=== PATIENT | female | born 1995 | race Caucasian/White ===

== ENCOUNTER 2022-10-11 05:53 | Inpatient (IN) | payer OTHER, SELFPAY ==
[2022-10-11] VITALS (86 sets, daily range): BP systolic 83–131; BP diastolic 50–99; PULSE 49–150; RESP 16; TEMP 36.3–36.9; O2SAT 79–100; BMI 33.8
[2022-10-11] MEDS: OXYTOCIN 30 UNITS/NS 500 ML 30 UNITS/500 ML BAG IV CONT (06:51)
[2022-10-11] MEDS: LACTATED RINGERS 1,000 ML 125 ML IV CONT ×3 (06:52→11:38)
[2022-10-11 07:19] LABS: Basophils Percent Auto 0.3 % (0.2-1.2); Eosinophils Percent Auto 0.3 % (0-4.4); Hematocrit 34.8 % (37.0-47.0); Hemoglobin 11.6 g/dL (12.0-15.0); Immature Granulocyte Absolute 0.07 K/mm3 (0.00-0.031); Immature Granulocyte Percent A 0.9 % (0-0.5); Lymphocytes Absolute Auto 1.97 K/mm3 (0.9-3.2); Lymphocytes Percent Auto 25.3 % (18.3-44.2); Mean Corpuscular HGB Conc 33.3 g/dl (32-36); Mean Corpuscular Hemoglobin 30.4 pg (26-34); Mean Corpuscular Volume 91.1 fl (80-100); Monocytes Absolute Auto 0.5 K/mm3 (0.1-0.6); Monocytes Percent Auto 6.2 % (2.6-8.5); Neutrophils Absolute Auto 5.2 K/mm3 (1.3-6.7); Platelet Count Result 205 k/mm3 (150-375); Red Blood Count 3.82 M/mm3 (4.2-5.4); White Blood Count 7.8 K/mm3 (4.5-10.0)
--- NOTE | 2022-10-11 08:17 | P.PNAN_ITS ---
Anes - Eval Pre Procedure Procedure: Labor Pain Management Date/Time: 10/11/22 08:17 Surgeon: Vee Preop Diagnosis: Pain during labor Pre Op Diagnosis: IOL Patient Data Age: 27 Gender: F Height: 1.57 m Weight: 84 kg Last Vital Signs Temp 97.4 F L 10/11/22 07:00 Pulse 73 10/11/22 08:01 BP 124/85 10/11/22 08:01 O2 Del Method Room Air 10/11/22 06:26 Allergies Allergy/AdvReac Type Severity Reaction Status Date / Time No Known Allergies Allergy Unverified 12/17/16 15:31 Home Medications Medication Instructions Recorded Confirmed Type prenat.vits,alisha,zts-[id number]-[id number] 1 tablet PO DAILY 09/24/22 10/11/22 History Laboratory Tests 10/11/22 10/11/22 06:47 06:47 WBC 7.8 K/mm3 K/mm3 (4.5-10.0) RBC 3.82 M/mm3 L M/mm3 (4.2-5.4) Hgb 11.6 g/dL L g/dL (12.0-15.0) Hct 34.8 % L % (37.0-47.0) MCV 91.1 fl fl (80-100) MCH 30.4 pg pg (26-34) MCHC 33.3 g/dl g/dl (32-36) RDW 14.0 % % (11.5-14.5) Plt Count 205 k/mm3 k/mm3 (150-375) MPV 11.0 fl H fl (7.4-10.4) Immature Gran % (Auto) 0.9 % H % (0-0.5) Neut % (Auto) 67.0 % % (45.5-73.1) Lymph % (Auto) 25.3 % % (18.3-44.2) [place] % (Auto) 6.2 % % (2.6-8.5) Eos % (Auto) 0.3 % % (0-4.4) Baso % (Auto) 0.3 % % (0.2-1.2) Lymph # (Auto) 1.97 K/mm3 K/mm3 (0.9-3.2) [place] # (Auto) 0.5 K/mm3 K/mm3 (0.1-0.6) Eos # (Auto) 0.0 K/mm3 K/mm3 (0-0.3) Baso # (Auto) 0.0 K/mm3 K/mm3 (0.0-0.1) Abs Immat Gran (auto) 0.07 K/mm3 H K/mm3 (0.00-0.031) Absolute Neuts (auto) 5.2 K/mm3 K/mm3 (1.3-6.7) Absolute Nucleated RBC 0.0 K/mm3 K/mm3 (0.0-0.012) Nucleated RBC % 0.0 % % (0.0-0.2) RPR Pending Patient hx anesthesia problems: none Family hx anesthesia problems: none Results Review: All pre-operative results and documents have been reviewed as part of the pre- operative evaluation. [facility] Family History Family History Other Patient denies significant medical history Social History Social History Smoking status: Never smoker Second hand tobacco smoke exposure: No Substance use: never Lack of Transportation: No Lack of Food: Never True Current Housing: I Have Housing Concerned About Future Housing: No Difficulty Paying Gas/Electric Bills: No Difficulty Paying for Meds: No Currently Unemployed: No Education: Associate Degree Difficulty w/ Childcare or Family Care: No Spiritual care concerns: No Exam Day of Procedure 10/11/22 08:17
--- NOTE | 2022-10-11 08:29 | P.HPUP_ITS ---
History and Physical Update Update Date/Time: 10/11/22 08:29 27-year-old multiparous female with a term gestation presents for elective induction. Cervix is 4 cm, 70%, -1 station. Artificial rupture membranes was performed. Clear fluid. Expected management. History and Physical has been reviewed, including an updated exam of the patient. There are NO changes in the patient's condition. Risks, benefits, and alternatives have been discussed and questions answered. Fernando ashford agrees to proceed with procedure.
--- NOTE | 2022-10-11 12:09 | PM.OBPRVD ---
OB - Delivery Note Procedure Procedure: Induction method: AROM and Per Pitocin Protocol Delivery monitor: External FHT and External Uterine Route of delivery: Episiotomy description: None Laceration Description: None Anesthesia type: Epidural Disposition: Floor Baby Date of : 10/11/22 Time of : 11:51 Weeks of gestation at delivery: 39 Infant gender: Female Weight (pounds): 8 Weight (ounces): 7 score one minute: 8 score five minutes: 9
[2022-10-11] MEDS: OXYTOCIN 30 UNITS/NS 500 ML 30 UNITS/500 ML BAG 125 UNITS IV CONT (12:29)
[2022-10-11] MEDS: IBUPROFEN 600 MG TABLET PO ×2 (15:44→22:43)
--- NOTE | 2022-10-11 16:57 | OBPPTRN ---
1505-Patient transferred to post room #290 via wheelchair. Support person present. Oriented to unit, room, information board, rooming in, admission packet and security measures. Patient verbalizes understanding.
[2022-10-12] MEDS: ACETAMINOPHEN 325 MG TABLET 650 MG PO ×2 (03:38→11:51)
[2022-10-12 04:20] LABS: Hematocrit 34.6 % (37.0-47.0); Hemoglobin 11.5 g/dL (12.0-15.0)
--- NOTE | 2022-10-12 07:15 | WPDANLDPN2 ---
Anes-Prog Note L&D Date/Time: 10/12/22 07:15 Comfortable throughout: labor and delivery Neuraxial method: epidural Epidural/Spinal procedure site: clean & non-tender Neuro status: Neuro function grossly intact. Cardiovascular status: normal Respiratory status: normal Airway patency: baseline Mental status: baseline Post-Op hydration status: normal Vital Signs: Last Vital Signs Temp 36.6 C 10/11/22 23:17 Pulse 59 L 10/11/22 23:17 Resp 16 10/11/22 23:17 BP 116/66 10/11/22 23:17 Pulse Ox 100 10/11/22 23:17 O2 Del Method Room Air 10/11/22 15:30 Pain score (VAS): 08/03 I/O: Intake & Output 10/11/22 10/11/22 10/12/22 15:59 23:59 07:59 Intake Total 1999 1800 Output Total 355 Balance 1645 1800 Post-procedural complaints: none Patient feedback: Patient satisfied with anesthetic care.
--- NOTE | 2022-10-12 07:26 | PM.OBPNVD ---
OB - PN: Subj Subjective Date/time seen: 10/12/22 07:26 Patient comments: no complaints, pain well controlled, incisional pain, tolerating diet and flatus present OB - PN: Obj Data Labs 10/12/22 04:08 Labs: Laboratory Results - last 24 hr 10/11/22 10/12/22 06:47 04:08 Hgb 11.5 L Hct 34.6 L Blood Type A Positive Antibody Screen Negative OB - PN A/P Plan day: 1 Plan: routine care Comments: No problems, routine care Time Spent With Patient Time: Total time spent is greater than 50% in coordination of care (as documented) at patient's floor/unit and/or counseling patient: Exam Const: General: comfortable, no acute distress and alert Resp: Effort & Inspection: normal respiratory effort Auscultation: no crackles, no rales and no rhonchi Cardio: Rate: regular rate Heart sounds: no click, no murmurs and no rubs GI: Inspection: non-distended GI Palp: No Tenderness to palpation present (GI) Auscultation: normal bowel sounds Other: Incision - CDI Extrem: General: normal to inspection, no pedal edema and no calf tenderness
--- NOTE | 2022-10-12 07:26 | PM.OBDSVD ---
DS: Admitting Diagnosis Discharge Date 10/12/22 Admitting Diagnosis term OB - DS: Summary OB Procedures : None OB Procedures Intrapartum: Spontaneous Vag Delivery OB Procedures: : None Time Spent with Patient Time attestation: Total time spent providing and/or coordinating discharge services: DS: Data Data Completed and Pending Pending studies at discharge: Pending at discharge 10/11/22 12:36 Surgical [PTH] Routine Labs on day of discharge: Labs from last 24 hours 10/12/22 10/11/22 04:08 06:47 Hgb 11.5 L Hct 34.6 L Blood Type A Positive Antibody Screen Negative Discharge Plan Discharge Discharging Clinician: Dra Baxter Patient Disposition: Home, Self-Care Activity: pelvic rest Diet: regular Patient Instructions: Antibiotic Form Stand Alone Forms: General Discharge Information Follow-up/Referrals: Dar Baxter MD [Physician] - Discharge Medications: Continued #2 Tablet 1 tablet PO DAILY Date of admission: 10/11/22 05:53 Primary Care Provider: LauraMar Admitting Provider: Dar Baxter Attending physician on admission: Dar Baxter Condition: Stable
[2022-10-12] MEDS: MULTIVIT/MIN/PREN/FOL AC/IRON TABLET 1 TAB PO (07:33)
[2022-10-12] MEDS: IBUPROFEN 600 MG TABLET PO (07:33)
[2022-10-12 07:55] VITALS: BP 102/72; PULSE 58; RESP 16; TEMP 36.5; O2SAT 99
--- NOTE | 2022-10-12 08:07 | PC.NURSE ---
Patient instructed on viewing the discharge video Mother & Baby Care, The First Two Weeks . Patient was given the opportunity and encouraged to ask questions. Patient verbalized understanding of information shared and has been given the mother/baby guide for home reference.
[2022-10-12 10:53] LABS: Rapid Plasma Reagin Non-Reactive (NonReactive)
[2022-10-13 14:10] VITALS: BP 116/73; PULSE 71; RESP 16; TEMP 36.8; O2SAT 99
--- NOTE | 2022-11-11 08:45 | PM.OBDSVD ---
DS: Admitting Diagnosis Discharge Date 10/12/22 Admitting Diagnosis term OB - DS: Summary OB Procedures : None OB Procedures Intrapartum: Spontaneous Vag Delivery OB Procedures: : None Time Spent with Patient Time attestation: Total time spent providing and/or coordinating discharge services: DS: Data Data Completed and Pending Completed studies during hospitalization: Pending at discharge 10/11/22 12:36 Surgical [PTH] Routine Discharge Plan Discharge Consulting providers: Mariola Jose ; Lashonda Mora Discharging Clinician: Dar Baxter Patient Disposition: Home, Self-Care Activity: pelvic rest Diet: regular Discharge Instructions: Education: Mom and Baby Guide Given to: Mother Follow-Up: Call your delivering provider's office for an appointment to be seen in: Call for appointment Mom and baby should come to the [facility] for the follow-up appointment. Appointment Date/Time: October 13, 2022 at 1:30 pm What to expect at your follow-up visit: Physical Assessment Call [phone] if you are unable to keep your appointment time. BREAST CARE: * Wear a snug supportive bra. * For engorgement discomfort: Breast Feeding: * Apply warm moist washcloths * Express milk as needed to relieve engorgement * Wear loose clothing * For sore nipples: * Identify correct latch-on * Apply warm moist washcloths before and after nursing * Air dry nipples after nursing * May apply Lansinoh cream to nipples EPISIOTOMY/PERINEAL CARE: * Until bleeding stops, use your ymles bottle after urinating * Change your pad frequently throughout the day * No tub baths until seen by your physician - You may shower ACTIVITY: * Rest as much as possible. * Do not exercise or lift anything heavier than your baby (such as laundry or other children.) * Avoid stairs or driving as much as possible. * Do not put anything into the vagina. No douching, tampons, or sexual activity until seen by physician. NOTIFY PHYSICIAN IF YOU HAVE ANY QUESTIONS OR IF ANY OF THE FOLLOWING SYMPTOMS OCCUR: * If your perineum becomes red, swollen, or more painful than what you have experienced in the hospital. * If your vaginal bleeding becomes foul smelling. * If your vaginal bleeding becomes more heavy than a period or if your bleeding changes from pink to bright red. However, you may pass an occasional walnut-sized clot once or twice for the first week . * If you experience a sharp, shooting pain in you calves. * If you discover a hard, reddened area on your breast or if you experience flu-like symptoms. DIET: * Eat regular, well-balanced meals. * Drink plenty of fluids daily. If , drink to thirst. Stand Alone Forms: General Discharge Information Follow-up/Referrals: Dar Baxter MD [Physician] - Discharge Medications: Continued prenat.vits,alisha,[id number] Tablet 1 tablet PO DAILY Date of admission: 10/11/22 05:53 Primary Care Provider: LauraMar Admitting Provider: Dar Baxter Attending physician on admission: Dar Baxter Condition: Stable
--- NOTE | 2022-11-11 08:46 | PM.OBTRLD ---
OB - Triage/Final Diagnosis Visit Information Comments/Additional reasons for admission: I have assessed the risk for this patient, Marybel Ramirez, and determined that she would benefit from observation care. Evaluation Laboratory results: Laboratory Tests 10/11/22 10/11/22 10/11/22 06:47 06:47 06:47 WBC 7.8 RBC 3.82 L Hgb 11.6 L Hct 34.8 L MCV 91.1 MCH 30.4 MCHC 33.3 RDW 14.0 Plt Count 205 MPV 11.0 H Immature Gran % (Auto) 0.9 H Neut % (Auto) 67.0 Lymph % (Auto) 25.3 [place] % (Auto) 6.2 Eos % (Auto) 0.3 Baso % (Auto) 0.3 Lymph # (Auto) 1.97 [place] # (Auto) 0.5 Eos # (Auto) 0.0 Baso # (Auto) 0.0 Abs Immat Gran (auto) 0.07 H Absolute Neuts (auto) 5.2 Absolute Nucleated RBC 0.0 Nucleated RBC % 0.0 RPR Non-reactive Blood Type A Positive Antibody Screen Negative 10/12/22 04:08 WBC RBC Hgb 11.5 L Hct 34.6 L MCV MCH MCHC RDW Plt Count MPV Immature Gran % (Auto) Neut % (Auto) Lymph % (Auto) [place] % (Auto) Eos % (Auto) Baso % (Auto) Lymph # (Auto) [place] # (Auto) Eos # (Auto) Baso # (Auto) Abs Immat Gran (auto) Absolute Neuts (auto) Absolute Nucleated RBC Nucleated RBC % RPR Blood Type Antibody Screen Final Diagnosis (1) Pain during labor: Code(s): O99.892 - Other specified diseases and conditions complicating childbirth; R52 - Pain, unspecified Status: Acute (2) : Code(s): Z34.90 - Encounter for supervision of normal , unspecified, unspecified trimester Status: Acute
== END 2022-10-12 14:55 | disposition home or self-care (01) | DRG 807 ==
LOC: ANHLDR 05:56 → ANHOB2 15:15
PROVIDERS: Admitting Provider Obstetrics & Gynecology; PCP Nurse Practitioner Family; Visit Provider Obstetrics & Gynecology
DX: O43.893 Other placental disorders, third trimester (principal); Z37.0 Single live birth; Z3A.39 39 weeks gestation of pregnancy
CPT/HCPCS: 36415; 85014; 85018; 85025; 86592; 86850; 86900; 86901; 88307; A9270; J2590; J2795; J7120

== ENCOUNTER 2025-06-05 16:37 | Outpatient (CLI) | payer OTHER, SELFPAY ==
--- NOTE | ~2025-06-05 | XR_ITS ---
EXAMINATION: XR chest 2V, 06/05/2025 16:53 [employer] HISTORY: cough x 2 weeks COMPARISON: No comparisons available. Technique: 2 views obtained. Findings: The lungs are clear, no effusion. No pneumothorax. Heart is normal size. Mediastinal and hilar contours are within normal limits. Bony thorax no acute abnormality. Impression: No acute cardiopulmonary abnormality. Reviewed, dictated and finalized at location [facility] Impression: No acute cardiopulmonary abnormality.
--- OUTSIDE RECORDS SUMMARY | 2025-06-05 16:45 | XMS_ITS | Data Portability ---
Author Organization [facility] [place] [place] Address [address] [place] [address] Assessment No assessment recorded. Plan of Treatment Reminders Order Date Submit Date Provider Last Modified By Organization Details Last Modified Time Details Appointments None recorded. Lab test, urine 2023 024 [place], [address], [place], [address], 4 11:51:20 test, urine 2022 023 [email or web address] [place], [address], [address], [place], [address], 3 14:16:57 Referral None recorded. Procedures None recorded. Surgeries None recorded. Imaging US, pelvis 2022 023 [email or web address] [place], [address], [address], [place], [address], 3 20:42:20 US, transvagina l 2022 023 [email or web address] [place], [address], [place], [address], 3 20:42:20 Medication Orders Nexplanon 68 mg subdermal implant 2023 024 [email or web address] Not available 4 12:14:24 Depo-C2 Tactical Analysis Technician a 150 mg/mL intramuscul ar syringe 2023 024 Not available 4 11:47:54 Depo-C2 Tactical Analysis Technician a 150 mg/mL intramuscul ar syringe 2022 023 Not available 4 11:47:54 Depo-C2 Tactical Analysis Technician a 150 mg/mL intramuscul ar syringe 2022 023 Not available 4 11:47:54 Patient TargetsNo targets recorded. Patient InstructionsNo instructions recorded. Reason for Referral None Reported. 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 FINAL DIAGN OSIS: Negat geoffrey for Intra epith elial Lesio n or Sunny dickey (NIL) . Elect kelly austin jesus d by Lucio Stewart, CT on 023 at 7:59 PM ----- ----- ----- ----- ----- ----- ----- ----- ----- ----- ----- ----- ----- ----- ----- ----- ----- ---- COMME NT: Slide scree guero tka lly due to rejec tion by the Thinp rep Imagi ng Syste m. CLINI ALISHA INFOR MATIO N: Menst rual Statu s: LMP (if appli cable ): Clini alisha Histo ry/Pr eviou s Pap: Type of Neopl marshall (if appli cable ): Signi fican t Clini alisha Findi ngs: Other Histo ry: Hormo ilene (if appli cable ): PAP EDUCA CALLY L NOTE: The Pap Test is a scree dara test with an inher ent false negat geoffrey rate. Liqui d-bas ed sampl ing may decre ase, but will not elimi lenore, false negat geoffrey resul ts. A negat geoffrey resul t does not precl ude the prese nce and/o r devel opmen t of disea se, since the prese nce of abnor mal cells in the sampl e depen ds on the locat ion of the lesio n and sampl ing techn ique. Aneudy nued regul ar scree dara is the best metho d of cance r preve ntion . If repor estefani cytol ogic findi ng do not corre late with physi alisha and/o r histo rical findi ngs, furth er inves tigat ion is recom justus d, as clini georges warrron nted. Not Available [facility] (Lab) [address], [place], [address], 01/28/2023 21:09:48 07/04/20 23 07/04/2023 pregn cassie test, urine HCG negati ve Not Available [place] [address], [place], [address], 07/04/2023 14:16:37 12/08/19 24 12/08/2023 pregn cassie test, urine HCG negati ve Not Available [place] [address], [place], [address], 12/08/2023 11:49:58 02/04/20 23 02/03/2023 US, pelvi s No observ ation record ed. [email or web address] [place] [address], [place], [address], 02/03/2023 18:52:33 02/04/20 23 02/03/2023 US, trans vagin al No observ ation record ed. [email or web address] [place] [address], [place], [address], 02/03/2023 18:52:24 02/04/20 23 02/03/2023 US, pelvi s No observ ation record ed. SENIA Joseph [address], [place], [address], 02/10/2023 22:06:30 Result Notes None recorded. Problems Name Problem SNOMED Code Status Onset Date Resolution Date Notes Provider Name and Address Organization Details Recorded Time Smoker [id number] Completed cut down signific antly, quit in her 1st pregnanc y. Quit! [place] [facility] 3 11:44:18 Smoker 54317004 Active cut down signific antly, quit in her 1st pregnanc y. Quit! Flor kyle [facility] 3 11:44:18 Marginal insertio n of umbilica l cord 65841269 Completed growth Flor kyle [facility] 3 11:44:18 Large for gestatio n age fetus 321336826 Completed Flor kyle [facility] 3 11:44:18 Increase d frequenc y of urinatio n 334363952 Completed 201210/18/2020 Urinary frequenc y;Record ed Elsewher e: No Locat ion: Claudia gibson [facility] S ource: EHR Wax Pattern Coater kathya: N Practi ce ID: 0001 Lee lable Time: 09:00:00 AM Patricia kyle [facility] 11:56:41 Urgent desire to urinate 65669067 Completed 201210/18/2020 URGENCY OF URINATIO N;Record ed Elsewher e: No Locat ion: [facility] S ource: EHR Wax Pattern Coater kathya: N Floydti ce ID: 0001 Lee lable Time: 09:00:00 AM Patricia kyle [facility] 11:57:23 Urinary tract infectio us disease 89238259 Completed 201210/18/2020 Urinary Tract Infectio n;Record ed Elsewher e: No Locat ion: [facility] S ource: EHR Wax Pattern Coater kathya: Ruthie Peguero ce ID: 0001 Lee lable Time: 09:00:00 AM Patricia kyle [facility] 11:57:26 Dysmenor franchesca [id number] Completed 201210/18/2020 Dysmenor franchesca;Rec orded Elsewher e: No Locat ion: [facility] S ource: EHR Wax Pattern Coater kathya: Ruthie Peguero ce ID: 0001 Lee lable Time: 09:00:00 AM Patricia kyle [facility] 11:56:23 Dysuria 55621005 Completed 201210/18/2020 Dysuria; Recorded Elsewher e: No [facility]at [facility] our[facility]: EHR Wax Pattern Coater kathya: Ruthie Barrientosti ce ID: 0001 Lee lable Time: 09:00:00 AM Patricia kyle [facility] 11:56:25 Female genital organ symptoms 802045494 Completed 201210/18/2020 Unspecif ied symptom associat ed with female genital organs;R ecorded Elsewher e: No [facility]at ion[facility] S ource: EHR Wax Pattern Coater kathya: Ruthie Peguero ce ID: 0001 Lee lable Time: 03:15:00 PM Patricia kyle, [facility] 11:56:27 Pregnanc y, childbir th and puerperi um finding Completed 201810/18/2020 Encntr for suprvsn of normal first preg, second trimeste r;Record ed Elsewher e: No Locat ion: Claudia arthur [facility] S ource: EHR Wax Pattern Coater kathya: Ruthie Peguero ce ID: 0001 Lee lable Time: 08:45:00 AM Patricia Fabian anabella, [facility] 11:57:11 Antenata l screenin g Completed 201810/18/2020 Encounte r for other specifie d antenata l screenin g;Record ed Elsewher e: No Locat ion: [facility] S ource: EHR Wax Pattern Coater kathya: Ruthie Peguero ce ID: 0001 Lee lable Time: 08:45:00 AM Patricia kyle, [facility] 11:56:15 Antenata l screenin g for malforma tion Completed 201810/18/2020 Encounte r for antenata l screenin g for malforma tions;Re corded Elsewher e: No Locat ion: [facility] S ource: EHR Wax Pattern Coater kathya: Ruthie Peguero ce ID: 0001 Lee lable Time: 09:30:00 AM Patricia kyle [facility] 11:56:17 Gestatio n period, 24 weeks 282688112 Completed 201810/18/2020 24 weeks gestatio n of pregnanc y;Record ed Elsewher e: No [facility]at ion: [facility] S ource: EHR Wax Pattern Coater kathya: Ruthie Peguero ce ID: 0001 Lee lable Time: 08:45:00 AM Patricia Fabian anabella [facility] 11:56:30 Placenta previa 24141714 Completed 201810/18/2020 Placenta previa specifie d as w/o hemor, second trimeste r;Record ed Elsewher e: No Locat ion: Claudia gibson [facility] S ource: EHR Wax Pattern Coater kathya: N Sudhir ce ID: 0001 Lee lable Time: 08:45:00 AM Patricia kyle, [facility] 11:56:50 malforma tion of central nervous system [id number] 07 Completed 201810/18/2020 Maternal care for (suspect ed) cnsl malform in fetus, unsp;Rec orded Elsewher e: No Locat ion: Claudia gibson [facility] S ource: EHR Wax Pattern Coater kathya: N Sudhir ce ID: 0001 Lee lable Time: 08:45:00 AM Patricia Fabian [facility], [facility] 11:56:45 Gestatio n period, 32 weeks 3382137 Completed 201810/18/2020 32 weeks gestatio n of pregnanc y;Record ed Elsewher e: No Locat ion: Claudia arthur [facility] S ource: EHR Wax Pattern Coater kathya: N Sudhir ce ID: 0001 Lee lable Time: 10:45:00 AM Patricia kyle, [facility] 11:56:33 Uterine size for dates discrepa ncy Completed 201810/18/2020 Uterine size-katie e discrepa ncy, third trimeste r;Record ed Elsewher e: No Locat ion: [facility] S ource: EHR Wax Pattern Coater kathya: N Sudhir ce ID: 0001 Lee lable Time: 10:45:00 AM Patricia kyle [facility] 11:57:28 Normal pregnanc y in multigra chapito [id number] 4106 Completed 201810/18/2020 Encounte r for suprvsn of normal pregnanc y, third trimeste r;Record ed Elsewher e: No Locat ion: Claudia gibson [facility] S ource: EHR Wax Pattern Coater kathya: N Floydti ce ID: 0001 Lee lable Time: 08:45:00 AM Patricia kyle, [facility] 11:56:47 Gestatio n period, 36 weeks 78178885 Completed 201810/18/2020 36 weeks gestatio n of pregnanc y;Record ed Elsewher e: No Locat ion: [place] arthur [facility] S ource: EHR Wax Pattern Coater kathya: N Floydti ce ID: 0001 Lee lable Time: 11:30:00 AM Patricia kyle, [facility] 11:56:34 Gestatio n period, 37 weeks [id number] Completed 201810/18/2020 37 weeks gestatio n of pregnanc y;Record ed Elsewher e: No Locat ion: Claudia arthur [facility] S ource: EHR Wax Pattern Coater kathya: N Floydti ce ID: 0001 Lee lable Time: 02:00:00 PM Patricia Fabian anabella, [facility] 11:56:[address] Concept Completed 201810/18/2020 Decrease d movement s, third trimeste r, unsp;Rec orded Elsewher e: No Locat ion: [place] ar[place] [facility] S ource: EHR Wax Pattern Coater kathya: N Floydti ce ID: 0001 Lee lable Time: 01:15:00 PM Patricia kyle [facility] 11:57:15 Pregnanc y, childbir th and puerperi um finding Completed 201810/18/2020 Encounte r for supervis ion of normal 1st pregnanc y;Record ed Elsewher e: No Locat ion: [facility] S ource: EHR Wax Pattern Coater kathya: N Practi ce ID: 0001 Lee lable Time: 10:00:00 AM Patricia kyle [facility] 11:57:09 Traumati c lesion during delivery [id number] Completed 201810/18/2020 Other specifie d obstetri c trauma;P ractice ID: 0001 Patricia Caren kyle, [facility] 11:57:20 Single live from singleto n pregnanc y [id number] Completed 201810/18/2020 Single live ;Pr actice ID: 0001 Patricia Fabian null, [facility] 11:57:13 Gestatio n period, 39 weeks 35376475 Completed 201810/18/2020 39 weeks gestatio n of pregnanc y;Practi ce ID: 0001 Patricia Fabian [facility], [facility] 11:56:38 Disorder of perineum Completed 201810/18/2020 Condylom a acuminat um;Recor ded Elsewher e: No Locat ion: Claudia gibson [facility] S ource: EHR Wax Pattern Coater kathya: N Practi ce ID: 0001 Lee lable Time: 11:30:00 AM Patricia Fabian [facility] 11:57:30 Lochia finding Completed 201810/18/2020 Encounte r for routine postpart um follow-u p;Record ed Elsewher e: No Locat ion: Claudia gibson [facility] S ource: EHR Wax Pattern Coater kathya: N Practi ce ID: 0001 Lee lable Time: 11:30:00 AM Patricia kyle [facility] 11:56:43 Pelvic and perineal pain 382376757 Completed 201810/18/2020 Pelvic pain;Rec orded Elsewher e: No Locat ion: [facility] S ource: EHR Wax Pattern Coater kathya: N Practi ce ID: 0001 Lee lable Time: 03:00:00 PM Patricia Fabian [facility] 11:56:49 Pregnanc y test negative [id number] Completed 201810/18/2020 Encounte r for pregnanc y test, result negative ;Recorde d Elsewher e: No Locat ion: [place] [facility] S ource: EHR Wax Pattern Coater kathya: N Floydti ce ID: 0001 Lee lable Time: 11:00:00 AM Patricia kyle, [facility] 11:57:07 Clinical finding Completed 201810/18/2020 Encounte r for initial prescrip tion of injectab le contrace p;Record ed Elsewher e: No Locat ion: [place] [facility] S ource: EHR Wax Pattern Coater kathya: N Floydti ce ID: 0001 Lee lable Time: 11:00:00 AM Patricia Fabian [facility], [facility] 11:56:[address] Concept Completed 201910/18/2020 Encntr for molder inflated ball exam (general ) (routine ) w/o abn findings ;Recorde d Elsewher e: No Locat ion: [place] arthur [facility] S ource: EHR Wax Pattern Coater kathya: N Floydti ce ID: 0001 Lee lable Time: 11:15:00 AM Patrciia Fabian [facility], [facility] 11:57:[address] Concept Completed 201910/18/2020 Encntr for general adult medical exam w/o abnormal findings ;Recorde d Elsewher e: No [facility]at [facility]: [facility] S ource: EHR Wax Pattern Coater kathya: N Floydti ce ID: 0001 Lee lable Time: 11:15:00 AM Patricia kyle, [facility] 11:57:17 Clinical finding Completed 201910/18/2020 Encounte r for surveill ance of injectab le contrace ptive;Re corded Elsewher e: No Locat ion: Claudia gibson [facility] S ource: EHR Wax Pattern Coater kathya: N Floydti ce ID: 0001 Lee lable Time: 02:00:00 PM Patricia Fabian null, [facility] 1 11:56:21 Pregnanc y 60250398 Completed 202111/01/2022 [place], [facility] 3 11:44:20 Gastroes ophageal reflux disease 885317869 Completed 2021 [place], [facility] 3 11:44:18 Gastroes ophageal reflux disease 333174950 Active 2021 [place] [facility], [facility] 3 11:44:18 Problem Notes None recorded. Procedures Surgical History Date Name Laterality Status Provider Name and Address Organization Details Recorded Time 12/08/19 24 Control Implant Insertion completed Sharon Little [facility] [address], [place], [address], [facility] 12/08/2023 11:56:17 01/28/20 23 Date of Last Pap Smear completed Ashly Arzate [facility] 12/08/2023 11:48:18 11/02/19 23 Abcess Drainage completed Ashley Crockett [facility] 11/10/2022 09:31:46 08/21/19 22 Wart Topical Procedure completed Sharon Little [facility] [address], [place], [address], [facility] 08/21/2021 15:20:23 10/19/19 21 Bladder Instillation completed Sharon Little [facility] [address], [place], [address], [facility] 10/19/2020 18:17:15 09/30/19 21 Bladder Instillation completed Sharon Little [facility] [address], [place], [address], [facility] 09/30/2020 10:10:58 09/30/19 21 Wart Topical Procedure completed Sharon Little [facility] [address], [place], [address], [facility] 09/30/2020 10:15:39 09/23/19 21 Bladder Instillation completed Sharon Little [facility] [address], [place], [address], [facility] 09/22/2020 17:39:16 09/05/19 21 Bladder Instillation completed Sharon Little [facility] [address], [place], [address], [facility] 09/05/2020 17:15:57 08/15/19 21 Bladder Instillation completed Sharon Little [facility] [address], [place], [address], [facility] 08/15/2020 15:22:29 07/25/19 08 procedure on elbow completed Patricia Fabian [facility] 10/18/2020 12:00:08 Imaging Results None recorded. Procedure Notes None recorded. Medical Equipment None Reported. Allergies No known drug allergies Medications Name Sig Start Date Stop Date Status Note LastModified by Organization Details LastModified Time compound drug SWISH AND SPIT 5 ML PO TID PRN FOR 7 DAYS 08/15 completed Not Available Not Available Not Available celecoxib 200 mg capsule Take 1 capsule every day by oral route as needed. 08/15 completed Not Available Not Available Not Available amoxicill in 500 mg capsule 08/15 completed Not Available Not Available Not Available cetirizin e 10 mg tablet TK 1 T PO D 08/15 completed Not Available Not Available Not Available valacyclo vir 1 gram tablet TAKE 1 TABLET BY MOUTH TWICE DAILY AT ONSET OF OUTBREAK FOR 5 DAYS NEEDED 05/31 completed Not Available Not Available Not Available hydrocodo ne 5 mg-acetam inophen 325 mg tablet TAKE 1 TABLET BY MOUTH EVERY 4 HOURS FOR PAIN 01/27 completed Not Available Not Available Not Available Keflex 500 mg capsule Take 1 capsule every 6 hours by oral route. 01/27 completed Not Available Not Available Not Available phenazopy ridine 200 mg tablet Take 1 tablet 3 times a day by oral route as needed. 08/15 completed Not Available Not Available Not Available prednison e 20 mg tablet TAKE 2 TABLETS BY MOUTH DAILY 12/07 completed Not Available Not Available Not Available omeprazol e 40 mg capsule,d elayed release TAKE 1 CAPSULE BY MOUTH EVERY DAY 11/04 completed Not Available Not Available Not Available amoxicill in 500 mg tablet TAKE 1 TABLET BY MOUTH TWICE DAILY WITH FOOD 03/12 completed Not Available Not Available Not Available ondansetr on 8 mg disintegr ating tablet DISSOLVE 1 TABLET ON THE TONGUE TWICE DAILY FOR 5 DAYS NEEDED 05/31 completed Not Available Not Available Not Available sodium bicarbona te 1 mEq/mL (8.4 %) intraveno us solution per provider instruct ion for bladder instilla tion 08/21 completed Not Available Not Available Not Available Kenalog 40 mg/mL suspensio n for injection Per provider instruct ion for bladder instilla tion 08/21 completed Not Available Not Available Not Available famotidin e 20 mg tablet 08/15 completed Not Available Not Available Not Available Depo-Prov era 150 mg/mL intramusc ular suspensio n Inject 1 mL every 3 months by intramus cular route with meals for 90 days. 12/07 completed Not Available Not Available Not Available amitripty line 10 mg tablet TAKE 1 TABLET BY MOUTH AT BEDTIME 08/21 completed Not Available Not Available Not Available pantopraz ole 40 mg tablet,de layed release TK 1 T PO QD 08/15 completed Not Available Not Available Not Available nortripty line 10 mg capsule 08/15 completed Not Available Not Available Not Available ibuprofen 600 mg tablet 01/14 completed Not Available Not Available Not Available heparin (porcine) 10,000 unit/mL injection solution Per provider for bladder instilla tion 08/21 completed Not Available Not Available Not Available fluticaso ne propionat e 50 mcg/actua tion nasal spray,maber pension SHAKE LQ AND U 1 SPR IEN BID 08/15 completed Not Available Not Available Not Available dicyclomi ne 10 mg capsule 08/15 completed Not Available Not Available Not Available metoclopr amide 10 mg tablet TAKE 1 TABLET BY MOUTH FOUR TIMES DAILY 11/04 completed Not Available Not Available Not Available Depo-Prov era 150 mg/mL intramusc ular syringe Inject 1 mL every 3 months by intramus cular route. 12/07 completed Depo (supplie d by patient from pharmacy ) injectio n given into left arm lot [id number] Exp 11/2024 and patient is next due December 06-December 21, 2023 Not Available Not Available Not Available sodium bicarbona te 50 mEq/50 mL (8.4 %) intraveno us syringe 08/15 completed Not Available Not Available Not Available cyclobenz aprine 5 mg tablet Take 1 tablet twice a day by oral route as needed. 08/15 completed Not Available Not Available Not Available Marcaine (PF) 0.5 % (5 mg/mL) injection solution Per provider instruct ion for bladder instilla tion 08/21 completed Not Available Not Available Not Available amitripty line 08/21 completed Not Available Not Available Not Available Vitamin 12/07 completed Not Available Not Available Not Available peg 3350-elec trolytes 236 gram-22.7 4 gram-6.74 gram-5.86 gram solution DRINK 1/2 OF PREP AT 6PM THE NIGHT BEFORE TEST. FINISH PREP 6 HOURS BEFORE TEST 08/15 completed Not Available Not Available Not Available Nexplanon 68 mg subdermal implant Inject 1 implant by subcutan eous route. 2023 active Not Available Not Available Not Avai lable 28 mg-800 mcg tablet 08/14 completed Prescrib kristian Elsew e: Yes Loca tion: Claudia gibson [facility] odify By: amy ídaz DateTime : 04/05/20 11:30:00 AM Not Available Not Available Not Available Norlyda 0.35 mg tablet take 1 tablet by oral route every day 01/14 completed Not Available Not Available Not Available Vitals Date Recorded Body height Body mass index (BMI) Body weight Provider Name and Address Organization Details Last Updated DateTime 09/20/2023 158.75 cm 32.6 kg/m2 67789.22 g Patricia Fabian [facility] 09/20/2023 10:05:18 Date Recorded Body height Body mass index (BMI) Body weight Systolic And Diastolic Provider Name and Address Organization Details Last Updated DateTime 12/08/2023 158.75 cm 34.6 kg/m2 93227.74 g 121/81 mm[Hg] Ashly Huey [facility] 12/08/2023 11:47:34 Social History Question Answer Notes LastModified by Organizat ion Details LastModified Time Tobacco Smoking Status Current Every Day Smoker Indira kyle, [facility] 08/18/2020 10:04:51 If You Are , What Was Your Level Of Alcohol Consumption Prior To ? Occasional Information not available 07/27/2022 How Many Years Have You Consumed Alcohol? 5 Information not available 08/18/2020 Are You Blind Or Do You Have Difficulty Seeing? No [email or web address] Information not available 10/18/2020 What Is Your Level Of Caffeine Consumption? Moderate Information not available 08/18/2020 In The 14 Days Before Symptom Onset, Have You Had Close Contact With A Laboratory-confir med COVID-19 While That Case Was Ill? No [email or web address] Information not available 10/18/2020 In The 14 Days Before Symptom Onset, Have You Had Close Contact With A Person Who Is Under Investigation For COVID-19 While That Person Was Ill? No [email or web address] Information not available 10/18/2020 Have You Been To An Area Known To Be High Risk For COVID-19? No [email or web address] Information not available 10/18/2020 Are You Deaf Or Do You Have Serious Difficulty Hearing? No [email or web address] Information not available 10/18/2020 What Type Of Diet Are You Following? REGULAR [email or web address] Information not available 10/18/2020 What Is The Highest Grade Or Level Of School You Have Completed Or The Highest Degree You Have Received? [id number] Information not available 12/08/2023 How Many Days Of Moderate To Strenuous Exercise, Like A Brisk Walk, Did You Do In The Last 7 Days? 0 Information not available 08/18/2020 Have You Ever Been Counseled For Unhealthy Alcohol Use? No Information not available 08/18/2020 Do You Use Your Seat Belt Or Car Seat Routinely? Yes Information not available 10/18/2020 Do You Have Smoke And Carbon Monoxide Detectors In Your Home? Yes [email or web address] Information not available 10/18/2020 At What Age Did You Start Smoking Tobacco? 17 Information not available 08/18/2020 How Much Tobacco Do You Smoke? No Information not available 12/08/2023 Do You Use Sunscreen Routinely? Yes [email or web address] Information not available 10/18/2020 Has Tobacco Cessation Counseling Been Provided? No Information not available 08/18/2020 How Many Years Have You Smoked Tobacco? 8 Information not available 08/18/2020 Have You Used IV Drugs? No Information not available 12/08/2023 Do You Have Difficulty Walking Or Climbing Stairs? No Information not available 03/12/2022 How Many Days In The Past Year Have You Consumed 4 Or More Drinks? 0 Information no t available 08/18/2020 Sex: Unknown Functional Status Question Answer Note LastModified by [employer] ion Details LastModified Time Do you use any illicit or recreational drugs? No Information not available 08/18/2020 Do you or have you ever used any other forms of tobacco or nicotine? No Information not available 08/18/2020 What is your level of alcohol consumption? None [email or web address] Information not available 07/27/2022 Are you able to walk independently without assistance or assistive devices? YESWOREST [email or web address] Information not available 10/18/2020 Are you able to care for yourself independently? Yes [email or web address] Information not available 03/12/2022 Do you have difficulty dressing, bathing, grooming, or toileting? No [email or web address] Information not available 03/12/2022 What is your exercise level? Occasional Information not available 08/18/2020 Mental Status Question Answer Note LastModified by Organization D etails LastModified Time Do you feel stressed (tense, restless, nervous, or anxious, or unable to sleep at night)? [id number] [email or web address] Information not available 10/18/2020 Family History Relationship Description Onset Age of this Age Resolved Age Notes LastModified by Organization Details LastModified Time Mother Cyst of ovary [email or web address] Not available 2023 11:31:01 Maternal Grandmother Asthma Not available 2019 14:04:04 Maternal Grandmother Diabetes mellitus Not available 2019 14:04:21 Maternal Grandmother Arthritis [email or web address] Not available 11:31:01 Maternal Grandmother Pulmonary [email or web address] Not available 2023 11:31:01 Medical History Condition Response Allergies (Food, seasonal, environmental ) N Other N Breast Cancer N Drug/Latex Allergies/Reactions N Blood Transfusion N Dermatologic Disorders N Lung Disease N Defects or Inherited Disease N Breast Problem N Gestational Diabetes N Hematologic disorders N Anesthesia Complications N History of STI Y Deep Vein Thrombosis N Polycystic ovary syndrome N Anxiety Disorder Y Autoimmune disease N Arthritis N Infertility N Polyps N Acid Reflux (GERD) N History of abnormal pap Y Cancer N Stroke N Varicosities N Neurologic/Epilepsy N Endometriosis N High Cholesterol N Headaches N Fibromyalgia N Kidney Disease N Heart Problems N Kidney or Bladder Problems N Thyroid Problems N GI Problems N Eating Disorder N Anemia N Art (IVF or FET) N Psychiatric Illness N Ovarian Cancer N Diabetes N Pulmonary (TB, Asthma) N Hepatitis/Liver Disease N No Past Medical History N Eczema N Urinary Tract Infection Y Abuse/Domestic Violence N Asthma N Trauma/Violence N Depression/ depression N Heart Disease N Pre-Eclampsia N Hypertension N Osteoporosis N Thrombophilias N Gynecological History Statement/Question Response Abnormal Pap N Date of Last Mammogram Date of LMP 01/10/2022 Was last menstrual period normal N STIs/STDs Y HPV Vaccine Current Control Method 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 Y Menses Monthly N Date of DEXA bone scan Age of first menstrual cycle 13 Date of Last Pap Smear 01/27/2023 Sexual Problems? N Desired Control Method Implant LMP Unknown Obstetrics History GPAL:G 2 P 2 0 0 2 Type Value Full Term 2 Living 2 Total 2 Past Encounters Encounter ID Performer Location Encounter Start Date Encounter Closed Date Diagnosis/Indication Diagnosis SNOMED-CT Code Diagnosis ICD10 Code Diagnosis IMO Codes Diagnosis Note [id number] Lan Baxter MD [place] [address] [address] 12/07/2019 14:40:56 12/10/2019 14:02:13 Contraception care 370081650 Z30.40 [id number] Sharon Little [facility] [place] [address],[place] [address] 01/15/2020 13:51:57 01/15/2020 14:54:41 Pain in pelvis [id number] R10.2 This patient is a 24-year-ol d female with pelvic pain. We have agreed to complete the evaluation with pelvic ultrasound . The patient will return after the pelvic ultrasound to discuss those findings and to develop a treatment plan. A comprehens geoffrey history and physical exam was performed today. We spent over 25 minutes face-to-fa ce. The patient was given precaution s. She will contact clinic if pelvic pain increases in frequency or intensity. Also notify clinic of any new symptoms associated with pelvic pain. She does not appear to have an acute pelvic infection today, but was asked to contact us Immediatel y with nausea, vomiting, fever, chills. Vag swabs sent to R/O infection TVUS recommende d. Note: Consider possibilit y of painful bladder syndrome/p elvic floor myalgia. Consider referral to GI specialist as well. We will discuss all these & TVUS results at upcoming visit. [id number] Lan Baxter MD [place] [address] [address] 01/17/2020 17:52:31 01/21/2020 16:31:31 Pain in pelvis [id number] R10.2 [id number] Sharon Little [facility] [place] [address],[place] [address] 01/21/2020 10:47:03 01/21/2020 12:06:59 Chronic pelvic pain of female [id number] R10.2 N32.89 R14.0 R11.0 N94.12 Here for f/u TVUS for pelvic pain. No change in status. TVUS is wnl No menses on depo. Suspect PBS/GI issues. 1. Deep dyspareuni a/Chronic pelvic pain. Pelvic floor therapy 2. PBS Education Flexeril/N SAID/Pyrid ium prn use IC diet trial Pelvic PT 3. GI Needs GI upset continues to have rando bloating & nausea Educationa l materials and counseling ont hese conditions provided. RTO x 4-6wks Time spent in visit is a total of 32 mins with at least 50% of visit consisting of counseling and review of plan of care. [id number] Sharon Little [facility] [place] [address],[place] [address] 03/03/2020 11:01:51 03/04/2020 17:24:36 Contraception care management [id number] Z30.9 Chronic pe lvic pain of female [id number] R10.2 N32.89 R14.0 R11.0 N94.12 1. Dyspareuni a She will continue PT to help improve this issue. Consider trial of elavil or vag valium supps. 2. Menses. Well controlled with Depo. Will continue at this time. Consider Bone scan if on >2-3yrs. 3. GI She will continue to work with GI specialist . 4. Bladder Seems to be wnl at this time but we still need to consider PBS as a possibilit y & trial of Elavil along with dietary changes. Time spent in visit is a total of 27 mins with at least 50% of visit consisting of counseling and review of plan of care. [id number] Sharon Little [facility] [place] [address],[place] [address] 05/26/2020 13:28:13 05/27/2020 17:00:23 Contraception care management [id number] Z30.9 Depo injection given by Irene. [id number] Sharon Little [facility] [place] [address],[place] [address] 08/15/2020 14:41:01 08/15/2020 15:40:09 Chronic interstitial cystitis [id number] N30.10 Bladder instillati on performed. Post-insti llation instructio ns given Pyridium 100-200mg TID prn, hydrate lots of water. Aware that the first 1-2 treatments can be more irritating to the bladder than helpful feeling. We do expect improvemen ts in her condition/ sx's by after the 3rd treatment if not sooner. Literature and websites given for IC diet/treat ment/what is IC/PBS etc for home review. She is starting Elavil given by her GI [facility] doctor this coming week. We again discussed Women's health PT in conjunctio n with these other treatments . Understand ing verbalized . Additional precaution se measures were taken to minimize potential exposure to the Covid-19 virus during this patient s visit, including available hand certified corporate travel executive upon arrive, temperatur e check and being asked a series of screening questions. All staff wore face coverings during this encounter, as well as provided additional cleaning and sanitizing of all surfaces, including countertop s, pens, chairs, door handles, light switches, etc, prior to and following the patient s visit. Will complete instil #2 in 1-2wks. Series of 6 total to be performed with 1 every 1-2wks until a total of 6 are completed then prn use after this time. [id number] Sharon Little [facility] [address] [address] 08/18/2020 09:54:40 08/18/2020 10:41:36 Gynecologic examination [id number] Z01.419 Take Calcium with Vitamin D 1200mg daily if not receiving in daily diet. It is strongly advised to have an annual flu shot and up can obtain at most pharmacies . If you have not had a TDap shot in the last 10 years you should obtain one as well. Discussed with patient & provided with informatio n regarding Gardisil vaccine to prevent the 4 strains for HPV that cause cervical cancer if under age 26. Encourage safe sexual practices, to use condoms and limit partners if not already in a monogamous relationsh ip. Do monthly self breast exams. Have mammogram yearly or every other year depending on family history. BRCA testing is now available for patients with strong genetic history of female cancer. If interested contact the office. Engage in daily exercise of low impact aerobic exercise 45-60 minutes 4-5 times weekly. Avoid tobacco and illicit drugs as well as using moderation with alcohol intake less than 1-2 8 oz beverages daily. This lifestyle behavior pattern will lead to less health conditions and longer life span. If BMI greater than 25 weight watchers or dietary consult advised. Patient received above gracie miles, and questions have been answered. If you have any questions please call or respond to this email. Patient was made aware of the patient portal and may obtain a paper copy of today's plan if desired. On Depo Wishes tocontinue . Less than 3yrs on this method. >3yrs consider dexa scan [id number] Sharon Little [facility] [address],[place] [address] 08/18/2020 10:58:16 08/18/2020 11:45:17 Contraception care management [id number] Z30.9 [id number] Sharon Little [facility] [address],[place] [address] 09/02/2020 11:01:41 09/04/2020 10:12:16 [id number] Sharon Little [facility] [address],[place] [address] 09/05/2020 14:03:12 09/08/2020 14:30:31 Chronic interstitial cystitis [id number] N30.10 Bladder instillati on performed. Post-insti llation instructpamela miles given Pyridium 100-200mg TID prn, hydrate lots of water. Aware that the first 1-2 treatments can be more irritating to the bladder than helpful feeling. We do expect improvemen ts in her condition/ sx's by after the 3rd treatment if not sooner. Literature and websites given for IC diet/treat ment/what is IC/PBS etc for home review. She is starting [facility] these other treatments . Understand ing verbalized . Additional precaution se measures were taken to minimize potential exposure to the Covid-19 virus during this patient s visit, including available hand certified corporate travel executive upon arrive, temperatur e check and being asked a series of screening questions. All staff wore face coverings during this encounter, as well as provided additional cleaning and sanitizing of all surfaces, including countertop s, pens, chairs, door handles, light switches, etc, prior to and following the patient s visit. Will complete instil #3 in 1-2wks. [id number] Sharon Little [facility] [address],[place] [address] 09/18/2020 16:09:55 09/22/2020 11:40:40 [id number] Sharon Littel [facility] [address],[place] [address] 09/22/2020 16:36:23 09/24/2020 21:58:32 Chronic interstitial cystitis 536329850 N30.10 Bladder instillati on performed. Post-inst illation instructio ns given Pyridium 100-200mg TID prn, hydrate lots of water. Aware that the first 1-2 treatments can be more irritating to the bladder than helpful feeling. We do expect improvemen ts in her condition/ sx's by after the 3rd treatment if not sooner. Literature and websites given for IC diet/treat ment/what is IC/PBS etc for home review. She is starting Elavil given by her [facility] doctor this coming week. [facility] with these other treatments . Understand ing verbalized . Additional precaution se measures were taken to minimize potential exposure to the Covid-19 virus during this patient s visit, including available hand certified corporate travel executive upon arrive, temperatur e check and being asked a series of screening questions. All staff wore face coverings during this encounter, as well as provided additional cleaning and sanitizing of all surfaces, including countertop s, pens, chairs, door handles, light switches, etc, prior to and following the patient s visit. Will complete instil #4 in 1-2wks. Lesion of vulva [id number] 6 N90.89 TCA applicatio n applied to scattered lesions ext vulva labia and top of mons approx 5 areas. Will RTO same time instillati on for #2 TCA applicatio n [id number] Sharon Little , [facility] [address] [address] 09/29/2020 16:35:58 09/30/2020 14:31:21 Chronic interstitial cystitis [id number] N30.10 Bladder instillati on performed. Post-insti llation instructio ns given Pyridium 100-200mg TID prn, hydrate lots of water. Aware that the first 1-2 treatments can be more irritating to the bladder than helpful feeling. We do expect improvemen ts in her condition/ sx's by after the 3rd treatment if not sooner. Literature and websites given for IC diet/treat ment/what is IC/PBS etc for home review. She is starting Elavil given by her GI [facility] doctor this coming week. We again discussed Women's health PT in conjunctio n with these other treatments . Understand ing verbalized . Additional precaution se measures were taken to minimize potential exposure to the Covid-19 virus during this patient s visit, including available hand certified corporate travel executive upon arrive, temperatur e check and being asked a series of screening questions. All staff wore face coverings during this encounter, as well as provided additional cleaning and sanitizing of all surfaces, including countertop s, pens, chairs, door handles, light switches, etc, prior to and following the patient s visit. Will complete instil #5 in 1-2wks. Condyloma acuminata of vulva [id number] A63.0 Here today for topical TCA treatment of wart/condy lomato help resolve3 areas scattered on mons pubis/labi a majorabila terally. TCAtxmentw as discussed with the patient including risks and complicati ons such as delayed healing, infection, painful scar and recurrence . Verbal consent to proceed was obtained. TCA was applied to the affected areas with softqtipaf ter area was cleaned withbetadi ne &petroleum jelly wasapplied to surroundin g skin. She tolerated it w/o difficulty and will return for additional treatments prn. Post-op care instructio ns were reviewed and dispensed. [id number] Sharon Little [facility] [address],[place] [address] 10/18/2020 11:29:51 10/19/2020 17:12:35 Chronic interstitial cystitis 292173794 N30.10 Bladder instillati on #6 was performed. Post-insti llation instructio ns given Pyridium 100-200mg TID prn, hydrate lots of water. Aware that the first 1-2 treatments can be more irritating to the bladder than helpful feeling. We do expect improvemen ts in her condition/ sx's by after the 3rd treatment if not sooner. Literature and websites given for IC diet/treat ment/what is IC/PBS etc for home review. She is starting Elavil given by her GI [facility] doctor this coming week. We again discussed Women's health PT in conjunctio n with these other treatments . Understand ing verbalized . Additional precaution se measures were taken to minimize potential exposure to the Covid-19 virus during this patient s visit, including available hand certified corporate travel executive upon arrive, temperatur e check and being asked a series of screening questions. All staff wore face coverings during this encounter, as well as provided additional cleaning and sanitizing of all surfaces, including countertop s, pens, chairs, door handles, light switches, etc, prior to and following the patient s visit. Series of 6 bladder instillati ons performed She will return prn of IC flares. Option to be referred to urology [facility] Jennifer Hunter or her colleagues for further evaluation /managemen t and considerat ion of cysto w/hydrodis tention. [id number] Sharon Little [facility] [address],[place] [address] 11/12/2020 15:03:29 11/12/2020 17:17:14 [id number] Sharon Little [facility] [address],[place] [address] 02/02/2021 14:46:51 02/03/2021 11:29:54 Contraception care management [id number] Z30.9 [id number] Sharon Little , [facility] [address],[place] [address] 04/20/2021 13:27:40 04/20/2021 14:14:31 Contraception care management [id number] Z30.9 [id number] Sharon Little [facility] [address],[place] [address] 08/21/2021 14:34:26 08/21/2021 15:20:57 Gynecologic examination 20643260 Z01.419 Take Calcium with Vitamin D 1200mg daily if not receiving in daily diet. It is strongly advised to have an annual flu shot and up can obtain at most pharmacies . If you have not had a TDap shot in the last 10 years you should obtain one as well. Discussed with patient & provided with informatio n regarding Gardisil vaccine to prevent the 4 strains for HPV that cause cervical cancer if under age 26. Encourage safe sexual practices, to use condoms and limit partners if not already in a monogamous relationsh ip. Do monthly self breast exams. Have mammogram yearly or every other year depending on family history. BRCA testing is now available for patients with strong genetic history of female cancer. If interested contact the office. Engage in daily exercise of low impact aerobic exercise 45-60 minutes 4-5 times weekly. Avoid tobacco and illicit drugs as well as using moderation with alcohol intake less than 1-2 8 oz beverages daily. This lifestyle behavior pattern will lead to less health conditions and longer life span. If BMI greater than 25 weight watchers or dietary consult advised. Patient received above instructio ns, and questions have been answered. If you have any questions please call or respond to this email. Patient was made aware of the patient portal and may obtain a paper copy of today's plan if desired. Monogamous relationsh ipNormal pap/hpv HxOpts to defer pap/hpv q3-5yrs per asccp unless otherwise indicated (consider q3-5yr schedule unless otherwise indicated. Genetic screen discussedS BE discussedS TD screen declinedPN V recommende dStopped Depo-going to try to achieve soon.Will track menses but aware might not return after Depo use x 6-12mos.Co ntact office if no menses 6mos and we can ensure no other issues with labs/TVUS since she is wanting to try to get . Genital warts [id number] A63.0 TCA applied to two genital HPV related warts on right labia majora.She will return x 2wks for her next TCA applicatio n.Post-pro cedure instructio ns were reviewed with understand ing verbalized . [id number] Lan Baxter MD [place] [address],[place] [address] 03/12/2022 11:51:04 03/12/2022 12:14:24 [id number] Daniella Vitale CNM [place] [address],[place] [address] 03/12/2022 11:51:33 03/12/2022 12:51:53 test positive [id number] Z32.01 Gynecologi c examination 70268338 Z01.419 Amenorrhea 51853690 N91. 2 Nausea and vomiting 1693 2000 R11.2 [id number] Lan Baxter MD [place] [address],[place] [address] 04/06/2022 11:16:30 04/06/2022 14:05:40 Routine care 732426351 Z34.81 [id number] Lan Baxter MD [place] [address],[place] [address] 04/06/2022 11:18:04 04/06/2022 11:59:07 screening [id number] Z36.82 [id number] Lan Baxter MD [place] [address],[place] [address] 05/07/2022 09:51:23 05/07/2022 10:36:41 [id number] Daniella Vitale CNM [place] [address],[place] [address] 05/07/2022 09:52:43 05/07/2022 11:19:51 Routine care 005688246 Z34.92 Nausea and vomiting 1693 1999 R11.2 [id number] Alexa Muñiz MD [place] [address],[place] [address] 05/31/2022 09:33:11 05/31/2022 10:57:25 screening for malformation 750312432 Z36.3 [id number] Alexa Muñiz MD [place] [address],[place] [address] 05/31/2022 09:33:40 06/01/2022 18:11:55 Gastroesophageal reflux disease 625753574 K21.9 Routine an tenatal care 022952448 Z34.82 Marginal i nsertion of umbilical cord 31837968 O43.129 [id number] Alexa Muñiz MD [place] [address],[place] [address] 06/28/2022 17:34:32 06/28/2022 18:36:17 Routine care 937794217 Z34.82 [id number] Alexa Muñiz MD [place] [address],[place] [address] 07/27/2022 09:36:13 07/27/2022 10:08:33 Placental condition affecting management of mother 426244156 O43.103 Z3A.28 [id number] Ashley Crockett [facility] [address],[place] [address] 07/27/2022 09:36:32 07/28/2022 17:25:50 Routine care 186499138 Z34.93 [id number] MD Lucia Walker [address],[place] [address] 08/10/2022 09:59:28 08/10/2022 10:40:00 Routine care 412441806 Z34.82 Marginal i nsertion of umbilical cord 85330818 O43.129 [id number] MD Lucia Walker [address],[place] [address] 08/24/2022 10:07:06 08/24/2022 15:13:37 Placental condition affecting management of mother 889911706 O43.103 Z3A.32 [id number] Alexa Muñiz MD [place] [address],[place] [address] 08/24/2022 10:07:47 08/24/2022 11:32:59 Routine care 925844753 Z34.82 [id number] MD Lucia Brannon [address],[place] [address] 09/10/2022 09:39:18 09/10/2022 10:40:06 Routine care 450844186 Z34.81 [id number] MD Lucia Brannon [address],[place] [address] 09/10/2022 10:16:33 09/10/2022 11:19:20 bradycardia 304175041 O36.8399 [id number] MD Lucia Brannon [address],[place] [address] 09/24/2022 09:32:02 09/24/2022 11:17:22 Marginal insertion of umbilical cord [id number] O43.123 Z3A.36 [id number] MD Lucia Brannon [address],[place] [address] 09/24/2022 09:33:00 09/24/2022 11:17:12 Routine care [id number] Z34.81 [id number] MD Lucia Brannon [address],[place] [address] 10/01/2022 10:12:00 10/01/2022 11:19:21 Routine care [id number] Z34.81 [id number] MD Lucia Brannon [address],[place] [address] 10/08/2022 09:53:03 10/08/2022 10:51:23 Routine care [id number] Z34.81 [id number] [facility] [address],[place] [address] 11/01/2022 14:37:32 11/03/2022 10:29:19 Abscess of skin of breast [id number] N61.1 Large amount of yellow/gre en tinted fluid drained. Culture collected and sent to lab. No bleeding. Significan t improvemen t of abscess. Pt also expressed significan t improvemen t of pain within a few minutes. Care instructio ns given. Antibiotic s ordered. Keflex per Dr Baxter. Plan to return in 2 days for follow up or sooner if any concerns or any s/s of infection. Pt verbalized understand ing. [id number] [facility] [address] [address] 11/04/2022 13:58:42 11/11/2022 17:38:17 Abscess of breast [id number] N61.1 Pt doing very well. Reviewed culture with Dr Baxter and patient should continue and complete current antibiotic . Plan to return for post visit in 1 week and will re-evaluat e at that time. Pt will call sooner if any s/s of infection or concerns. [id number] Lan Baxter MD [place] [address],[place] [address] 11/10/2022 14:31:57 11/10/2022 16:27:43 Contraception care management [id number] Z30.9 This patient is a 27-year-ol d female who is 4 weeks of vaginal . She also had a breast abscess that was drained here in the office previously . It is healing well. She is breastfeed ing. Bleeding has slowed considerab ly. Her baby is doing well. She is doing well. She has not had sex. And she is going to use Depo-Prove ra for control. She will return in 2 months for well-woman exam. [id number] [facility] [address] [address] 01/27/2023 09:07:52 01/27/2023 12:24:53 Contraception care management [id number] Z30.9 Happy on DepoRF sent x 1yr Gynecologi c examination 20900204 Z01.419 Take Calcium with Vitamin D 1200mg daily if not receiving in daily diet. It is strongly advised to have an annual flu shot and up can obtain at most pharmacies . If you have not had a TDap shot in the last 10 years you should obtain one as well. Discussed with patient & provided with informatio n regarding Gardisil vaccine to prevent the 4 strains for HPV that cause cervical cancer if under age 26. Encourage safe sexual practices, to use condoms and limit partners if not already in a monogamous relationsh ip. Do monthly self breast exams. Have mammogram yearly or every other year depending on family history. BRCA testing is now available for patients with strong genetic history of female cancer. If interested contact the office. Engage in daily exercise of low impact aerobic exercise 45-60 minutes 4-5 times weekly. Avoid tobacco and illicit drugs as well as using moderation with alcohol intake less than 1-2 8 oz beverages daily. This lifestyle behavior pattern will lead to less health conditions and longer life span. If BMI greater than 25 weight watchers or dietary consult advised. Patient received above instructio ns, and questions have been answered. If you have any questions please call or respond to this email. Patient was made aware of the patient portal and may obtain a paper copy of today's plan if desired.Fernando duarte sentSTD Screen sentGeneti c Screen discussedC olon Screen naDexa Screen naRoutine Labs PCP Pain in pelvis [id number] R10.2 Musculoske letal vs other APPLICATION SUPPORT related issue (i.e. cysts, fibroids, infection etc) Recommend foot levelers insoles for shoes especially with where she works-[employer] floors[employer] te [place] to ensure no other contributi ng issues based on exam and subjective complaints .Will reach out with results.If we suspect purely musculoske letal we will have her return to pelvic floor therapy as discussed today. [id number] Lan Baxter MD [place] [address] [address] 02/03/2023 11:31:28 02/03/2023 15:31:30 Pain in pelvis 77507302 R10.2 [id number] Lan Baxter MD [place] [address],[place] [address] 04/15/2023 10:56:28 04/15/2023 11:14:54 Contraception care management [id number] Z30.9 This patient is a 27-year-ol d female who is 4 weeks of vaginal . She also had a breast abscess that was drained here in the office previously . It is healing well. She is breastfeed ing. Bleeding has slowed considerab ly. Her baby is doing well. She is doing well. She has not had sex. And she is going to use Depo-Prove ra for control. She will return in 2 months for well-woman exam. [id number] Sharon Little , [facility] [address],[place] [address] 07/04/2023 13:50:02 07/04/2023 14:47:23 Contraception care management [id number] Z30.9 Happy on DepoRF sent x 1yr [id number] Lan Baxter MD [place] [address],[place] [address] 09/20/2023 09:32:55 09/20/2023 10:32:37 Contraception care [id number] Z30.40 [id number] Sharon Little [facility] [address],[place] [address] 12/08/2023 11:30:29 12/08/2023 11:58:31 Contraception care management [id number] Z30.9 Wants to switch from Depo to Nexplanon. Still within her Depo window.We agreed to switch methods today. Discussed all control options in depth and pt is interested in Nexplanon. Discussed all risks and benefits including irregular unschedule d bleeding. Pt verbalized understand ing and would like to proceed. She is aware that she needs to call us on the 1st day of her period to schedule placement. Time spent in visit is a total of 30 mins with at least 50% of visit consisting of counseling and review of plan of care NOT including time spent on procedure today. Implantati on of subcutaneous contraceptive [id number] Z30.46 Patient is here currently on her menses. She was given all the r/b/a of placement of the Nexplanon device and has signed the consent. She is fully aware of all possible side effects of the device and has decided to move forward with placement. Insertion site was cleansed with betadine and 3cc lidocaine used for anesthesia . Device was placed in the left arm per usual fashion w/o complicati on and patient instructed to f/u in three month or earlier if there are any si/sx of infection or hypersensi tivity at the insertion site Health Concerns Section Related Observation LastModified by Organization Detai ls LastModified Time None Recorded Concern Status LastModified by Organization Details LastModified Time None Recorded Advance Directives Directive None Recorded Payers Insurance Date Sequence Insurance Name Policy Number Policy Levin Covered Member ID Levin Member ID Guarantor Name 12/09/2023 1 [employer] (POS II) [id number] Tiann a B Hand [id number] Marybel B Hand 08/19/2021 1 [facility] PRIOR TO 01/22/2021 (MEDICAID REPLACEMENT - HMO) Marybel Hand [id number] Marybel B Hand 11/17/2023 2 [facility] ON OR AFTER 01/22/21 (MEDICAID REPLACEMENT - HMO) Marybel B Hand [id number] Marybel B Hand 09/19/2023 2 [facility] ON OR AFTER 01/22/21 (MEDICAID REPLACEMENT - HMO) Marybel Hand [id number] Marybel B Hand 11/23/2023 2 [place]: [place] [employer] Marybel B Hand [id number] Marybel B Hand 10/12/2022 3 [facility] (PP[facility] [id number] Marybel B Hand [id number] Marybel B Hand 09/19/2023 1 [employer] [facility] (O) Marybel B Hand [id number] Marybel B Hand Notes Date Note Type Note Provider Name and Address Organization Details Recorded Time 12/08/2023 text/html ROS as noted in the HPI Here today for nexplanon consult and nexplanon insertion. Health Hx was reviewed and updated as reported in chart. YUE Jordan- [address] [place], [address], [facility] 12/08/2023 11:58:26 OBGyn Episode Ob Episode Information Episode Created Date Number of Fetuses Patient Bloodtype Patient rh Status Prepregnancy Weight lbs Domestic Partner Domestic Partner Phone Father Name Assisted Living Coordinator Status 01/15/20 20 1 CLOSED Fetus Data First Name Last Name Admitted to NICU Weight (g) Sex Living Outcome Pediatric Complications Fetus ID Race Codes Race Delivery Type 3486.76 1704 M Full Term 2482 Vaginal Delivery Clayton Calculation Initial Clayton Date Initial Exam Date Initial Exam Provider Initial Ultrasound Date Last Menstrual Period Date Ultra Sound Weeks Gestation 0 Eighteen To Twenty Week Clayton Update Ultra Sound Date Fundal Height At Umbil Quickening Date Ultra Sound Latest Weeks Gestation Final Clayton Confirmed By Final Clayton Confirmed Date Final Clayton Date Ultra Sound Latest Days Gestation 0 0 Menstrual History Last Menstrual Date Menses Monthly On Bcp Conception Prior Menses Frequency Hcg Plus Date Menarche Onset Age Delivery Information Delivery Date Delivery Type Labor Anesthesia Weeks Gestation Incision Type Labor Labor Length Hrs Delivered By Post Complications Tubal Sterilization Discharge Date Comments 9 39 placenta preavia Discharge Information Feeding Method Contraceptive Method Maternal HG B and HCT Levels Ob Episode Information Episode Created Date Number of Fetuses Patient Bloodtype Patient rh Status Prepregnancy Weight lbs Domestic Partner Domestic Partner Phone Father Name Assisted Living Coordinator Status 04/06/20 22 1 A Positive 144 CLOSED Fetus Data First Name Last Name Admitted to NICU Weight (g) Sex Living Outcome Pediatric Complications Fetus ID Race Codes Race Delivery Type 3827.18 25 F true Full Term 10375 Problems Problem Notes Problem Name Start Date End Date Resolution Snomed Code Not e Smoker [id number] cut down significantly, quit in her 1st . Quit! Gastroesophageal reflux disease 06/07/2022 [id number] Large for gestation age fetus [id number] Marginal insertion of umbilical cord 54693999 growth US Clayton Calculation Initial Clayton Date Initial Exam Date Initial Exam Provider Initial Ultrasound Date Last Menstrual Period Date Ultra Sound Weeks Gestation 10/17/2022 04/06/2022 03/12/2022 01/10/2022 9 Eighteen To Twenty Week Clayton Update Ultra Sound Date Fundal Height At Umbil Quickening Date Ultra Sound Latest Weeks Gestation Final Clayton Confirmed By Final Clayton Confirmed Date Final Clayton Date Ultra Sound Latest Days Gestation 0 [email or web address] 04/06/2022 10/18/19 23 0 Pre- Flowsheet Flowsheet Date 04/06/2022 Vee Score Blood Edema Fundus Height Fundus Units Glucose Ketones Leukocytes Nitrite Labor Signs Protein Cervic Dilation Cervic Effacement Cervic Station 12 Type Weight in lbs Pre/Post Dialysis Refused Weight 147.004565032469 BP Diastolic BP Location Tested BP Systolic BP Type 74 R arm 115 sitting Fetus Heart Rate Present A 155 Fetus Movement Comments This patient is a 26-year-ol d 2 para 1001 at 12 weeks gestation who presents for initial care. She is vaccinated for COVID. She was given other vaccine recommendations including the flu and Tdap. We talked about care in detail. She will begin routine care. Flowsheet Date 05/07/2022 Vee Score Blood Edema Fundus Height Fundus Units Glucose Ketones Leukocytes Nitrite Labor Signs Protein Cervic Dilation Cervic Effacement Cervic Station Type Weight in lbs Pre/Post Dialysis Refused BP Diastolic BP Location Tested BP Systolic BP Type Fetus Heart Rate Present Fetus Movement Comments Flowsheet Date 05/07/2022 Vee Score Blood Edema Fundus Height Fundus Units Glucose Ketones Leukocytes Nitrite Labor Signs Protein Cervic Dilation Cervic Effacement Cervic Station neg none trace trace Type Weight in lbs Pre/Post Dialysis Refused Weight 150.250296851286 BP Diastolic BP Location Tested BP Systolic BP Type 72 105 Fetus Heart Rate Present Fetus Movement A Yes Comments patient is having pain, dizz iness, nausea and vomiting. gender ID, refill reglan, reviewed precautions plan anatomy scan in 4 weeks Flowsheet Date 05/31/2022 Vee Score Blood Edema Fundus Height Fundus Units Glucose Ketones Leukocytes Nitrite Labor Signs Protein Cervic Dilation Cervic Effacement Cervic Station Type Weight in lbs Pre/Post Dialysis Refused BP Diastolic BP Location Tested BP Systolic BP Type Fetus Heart Rate Present Fetus Movement Comments Flowsheet Date 05/31/2022 Vee Score Blood Edema Fundus Height Fundus Units Glucose Ketones Leukocytes Nitrite Labor Signs Protein Cervic Dilation Cervic Effacement Cervic Station neg none none trace Type Weight in lbs Pre/Post Dialysis Refused Weight 156.102324488128 BP Diastolic BP Location Tested BP Systolic BP Type 70 108 Fetus Heart Rate Present Fetus Movement A Yes Comments Doing well except bad GERD, may restart her omeprazole. US today anatomy complete and wnl with marginal cord insertion. Growth US in 3rd tri. Encouraged flu shot. Flowsheet Date 06/28/2022 Vee Score Blood Edema Fundus Height Fundus Units Glucose Ketones Leukocytes Nitrite Labor Signs Protein Cervic Dilation Cervic Effacement Cervic Station neg none 27 none trace Type Weight in lbs Pre/Post Dialysis Refused Weight 169.582736189813 BP Diastolic BP Location Tested BP Systolic BP Type 65 106 Fetus Heart Rate Present A 135 Fetus Movement A Yes Comments Doing well. SOme round ligam ent, some dizzy spells that resolve quickly.. Precautions given. Quit smoking! Will do flu shot. Growth US and GCT next visit. Flowsheet Date 07/27/2022 Vee Score Blood Edema Fundus Height Fundus Units Glucose Ketones Leukocytes Nitrite Labor Signs Protein Cervic Dilation Cervic Effacement Cervic Station Type Weight in lbs Pre/Post Dialysis Refused BP Diastolic BP Location Tested BP Systolic BP Type Fetus Heart Rate Present Fetus Movement Comments Flowsheet Date 07/27/2022 Vee Score Blood Edema Fundus Height Fundus Units Glucose Ketones Leukocytes Nitrite Labor Signs Protein Cervic Dilation Cervic Effacement Cervic Station neg none none trace Type Weight in lbs Pre/Post Dialysis Refused Weight 171.623841071313 BP Diastolic BP Location Tested BP Systolic BP Type 69 106 Fetus Heart Rate Present Fetus Movement A Yes Comments Doing well. Encouraged tdap. Ultrasound today normal. Did not end up starting medication for GERD. She has been doing well. Plan to return in 2 weeks for routine visit. Flowsheet Date 08/10/2022 Vee Score Blood Edema Fundus Height Fundus Units Glucose Ketones Leukocytes Nitrite Labor Signs Protein Cervic Dilation Cervic Effacement Cervic Station neg none 29 none trace Type Weight in lbs Pre/Post Dialysis Refused Weight 176.499493903911 BP Diastolic BP Location Tested BP Systolic BP Type 68 106 Fetus Heart Rate Present A 130 Fetus Movement A Yes Comments Doing well, occasional BH, s ome pelvic discomfort. GCT wnl. Will do Tdap. Growth US next. Flowsheet Date 08/24/2022 Vee Score Blood Edema Fundus Height Fundus Units Glucose Ketones Leukocytes Nitrite Labor Signs Protein Cervic Dilation Cervic Effacement Cervic Station Type Weight in lbs Pre/Post Dialysis Refused BP Diastolic BP Location Tested BP Systolic BP Type Fetus Heart Rate Present Fetus Movement Comments Flowsheet Date 08/24/2022 Vee Score Blood Edema Fundus Height Fundus Units Glucose Ketones Leukocytes Nitrite Labor Signs Protein Cervic Dilation Cervic Effacement Cervic Station neg none none trace Type Weight in lbs Pre/Post Dialysis Refused Weight 178.391019959287 BP Diastolic BP Location Tested BP Systolic BP Type 74 116 Fetus Heart Rate Present A 140 Fetus Movement A Yes Comments Doing well. Tdap done. US to day 70%. Labor precautions discussed. Will schedule preregistration. Flowsheet Date 09/10/2022 Vee Score Blood Edema Fundus Height Fundus Units Glucose Ketones Leukocytes Nitrite Labor Signs Protein Cervic Dilation Cervic Effacement Cervic Station Type Weight in lbs Pre/Post Dialysis Refused Weight 182.133929879984 BP Diastolic BP Location Tested BP Systolic BP Type 70 R arm 112 sitting Fetus Heart Rate Present A 118 Fetus Movement A Yes Comments vomiting Mon&Tues every 2 ho urs, worse at night. Better now, able to keep food down. Nausea continues, bradycardia - to have nst. growth US in two weeks Flowsheet Date 09/10/2022 Vee Score Blood Edema Fundus Height Fundus Units Glucose Ketones Leukocytes Nitrite Labor Signs Protein Cervic Dilation Cervic Effacement Cervic Station Type Weight in lbs Pre/Post Dialysis Refused BP Diastolic BP Location Tested BP Systolic BP Type Fetus Heart Rate Present Fetus Movement Comments Flowsheet Date 09/24/2022 Vee Score Blood Edema Fundus Height Fundus Units Glucose Ketones Leukocytes Nitrite Labor Signs Protein Cervic Dilation Cervic Effacement Cervic Station Type Weight in lbs Pre/Post Dialysis Refused BP Diastolic BP Location Tested BP Systolic BP Type Fetus Heart Rate Present Fetus Movement Comments Flowsheet Date 09/24/2022 Vee Score Blood Edema Fundus Height Fundus Units Glucose Ketones Leukocytes Nitrite Labor Signs Protein Cervic Dilation Cervic Effacement Cervic Station 3cm 50% Type Weight in lbs Pre/Post Dialysis Refused Weight 181.919457276585 BP Diastolic BP Location Tested BP Systolic BP Type 74 R arm 116 sitting Fetus Heart Rate Present A 145 Fetus Movement A Yes Comments very favorable cervix, agree d to induction at 39 weeks, large for gestational age baby. Flowsheet Date 10/01/2022 Vee Score Blood Edema Fundus Height Fundus Units Glucose Ketones Leukocytes Nitrite Labor Signs Protein Cervic Dilation Cervic Effacement Cervic Station 37 4cm 50% -1 Type Weight in lbs Pre/Post Dialysis Refused Weight 183.891133989712 BP Diastolic BP Location Tested BP Systolic BP Type 72 R arm 109 sitting Fetus Heart Rate Present A 131 Fetus Movement A Yes Comments No complaints, no problems, to be induced on the , excellent exam. 4 cm, -1, very soft Flowsheet Date 10/08/2022 Vee Score Blood Edema Fundus Height Fundus Units Glucose Ketones Leukocytes Nitrite Labor Signs Protein Cervic Dilation Cervic Effacement Cervic Station 3cm 70% -2 Type Weight in lbs Pre/Post Dialysis Refused Weight 185.741574445651 BP Diastolic BP Location Tested BP Systolic BP Type 79 R arm 121 sitting Fetus Heart Rate Present Fetus Movement A Yes Comments excellent exam, very favorab le, induction in 3 days Menstrual History Last Menstrual Date Menses Monthly On Bcp Conception Prior Menses Frequency Hcg Plus Date Menarche Onset Age 0601/10/2022 Genetic Screening And Infection History Question Response Note Mental Retardation/Autism false Patient's Age Will Be 35 Years Or Older At Estim ated Date of Delivery false Thalassemia (Guyanese, Pashto, Mediterranean, Or Background): MCV < 80 false Neural Tube Defect (Meningomyelocele, Spina Bifi da, Or Anencephaly) false Congenital Heart Defect false Down Syndrome false Nimesh-Sachs (eg, Jew, Cajun, Guamanian-Toone) f alse Frantz Disease false Sickle Cell Disease Or Trait () false Hemophilia Or Other Blood Disorders false Muscular Dystrophy false Cystic Fibrosis false Sutter's Chorea false Intellectual Disability/Autism false If Yes, Was Person Tested For Fragile X? false Other Inherited Genetic Or Chromosomal Disorder false Maternal Metabolic Disorder (eg, Type 1 Diabetes , PKU) false Patient Or Baby's Father Had A Child With Defects Not Listed Above false Recurrent Loss, Or A Stillbirth false Medications (including Suppl ements, Vitamins, Herbs, OTC Drugs), Illicit/Recreational Drugs, Alcohol false If Yes, Agent(s) And Strength/Dosage false Any Other Genetic History false Live With Someone With TB Or Exposed To TB false Patient Or Partner Has History Of Genital Herpes false Rash Or Viral Illness Since Last Menstrual Perio d false History Of STD, Gonorrhea, Chlamydia, HPV, Syphi lis true hpv Other Infection History false History of HIV false History of Hepatitis false Prior GBS-infected child false Hemoglobinopathy Or Carrier false Other Structural Defect false Recent Travel History Outside of Country false Delivery Information Delivery Date Delivery Type Labor Anesthesia Weeks Gestation Incision Type Labor Labor Length Hrs Delivered By Post Complications Tubal Sterilization Discharge Date Comments 3 Induce d 39.1 false LGA Discharge Information Feeding Method Contraceptive Method Maternal HG B and HCT Levels
--- OUTSIDE RECORDS SUMMARY | 2025-06-05 16:45 | XMS_ITS | Clinical Summary ---
Author Organization [facility] Address [address] [place] [address] Care Team Providers Care Crop Supervisor Name Role Phone Mar Sanchez Primary Care Provider Source Comments [facility],non-owned Affiliates and Associated Physician Practices is amultiple site organization consisting of ambulatory clinics and hospital sitesin [place], [place], [place] and [place]. This disclosure is being madepursuant to the Care Everywhere program and may not contain all information available regarding this patient. Last updated 18.[facility] Allergies Active Allergy Reactions Criticality Noted Date Comments Latex Other 04/16/2020 Medications * Be aware that medications may not be up to date on this document. Alwaysverify current medications with the patient. ibuprofen (MOTRIN) 200 MG tablet Take by mouth every 6 hours as needed for Pain Active amitriptyline (ELAVIL) 10 MG tablet Take 1 tablet by mouth at bedtime 90 tablet 3 07/30/2020 Active Heparin Sodium, Porcine, 56688 UNIT/ML injection 10/18/2020 Active medroxyPROGESTE Rodrigo (DEPO-PROVERA) 150 MG/ML vial INJECT 1 ML IN THE MUSCLE EVERY 3 MONTHS 08/18/2020 Active omeprazole (PRILOSEC) 40 MG capsule Take 1 (one) capsule by mouth once daily 30 capsule 11 10/29/2020 Active Active Problems Problem Noted Date Diagnosed Date Gastroparesis 10/29/2020 GERD (gastroesophageal reflux disease) IBS (irritable bowel syndrome) 10/29/2020 Pelvic pain 04/16/2020 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 Social History Tobacco Use Types Packs/Day Years Used Date Smoking Tobacco: Some Days Smokeless Tobacco: Never Comments:6-8 daily Alcohol Use Standard Drinks/Week Comments Yes 0 (1 standard drink = 0.6 oz pur e alcohol) occasional Comments No Sex and Gender Information Value Date Recorded Sex Assigned at Not on file 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[employer] Gender Identity Not on file Sexual Orientation Not on file Last Filed Vital Signs Vital Sign Reading Time Taken Comments Blood Pressure 122/80 10/29/2020 9:34 AM CDT Pulse 82 10/29/2020 9:34 AM CDT Temperature 36.2 C (97.1 F) 10/29/2020 9:34 AM CDT Respiratory Rate 19 10/29/2020 9:34 AM CDT Oxygen Saturation 100% 10/29/2020 9:34 AM CDT Inhaled Oxygen Concentration - - Weight 76.9 kg (169 lb 9.6 oz) 10/29/2020 9:34 A M CDT Height 157.5 cm (5' 2) 10/29/2020 9:34 AM CDT Body Mass Index 31.02 10/29/2020 9:34 AM CDT Plan of Treatment Health Maintenance Due Date Last Done Comments HIV SCREENING 2009 HEPATITIS C SCREENING 07/24/2012 DTAP/TDAP/TD VACCINES (1 - Tdap) 2013 HEPATITIS B VACCINE (1 of 3 - 19+ 3-dose series) 2013 HPV VACCINE (1 - 3-dose SCDM series) 2021 DEPRESSION SCREENING 07/25/2024 COVID-19 VACCINE (1 - 2023-2 5 season) 2025 INFLUENZA VACCINE (#1) 2025 06/18/2020 ZOSTER VACCINE (1 of 2) 2044 HIB VACCINE Aged Out No longer eligi ble based on patient's age to complete this topic MENINGOCOCCAL (Group B) VACC INE SHARED DECISION-MAKING Aged Out No longer eligibl e based on patient's age to complete this topic MENINGOCOCCAL GROUPS A/C/Y/W VACCINE Aged Out No longer eligible b ased on patient's age to complete this topic PNEUMOCOCCAL VACCINE Aged Out No long er eligible based on patient's age to complete this topic Goals Goal Patient Goal Type Associated Problems Recent Progress Patient-Stated? Author Medication Management General On track( 021 9:44 AM CDT) Daniella Tan RN Note: Expected end date: Ongoing Interventions: Take all medications as prescribed Let your doctor know right away about any changes in your medications Make sure to request a refill of your medication at least one week prior to your last dose Insurance [facility] Care Teams Crop Supervisor Relationship Specialty Start Date End Date Mar Sanchez, VIDEO TAPE TRANSFERRER-BUTADIENE CONVERTER HELPER [address] [place] [address] PCP - General 10/28/22
--- OUTSIDE RECORDS SUMMARY | 2025-06-05 16:45 | XMS_ITS | Data Portability ---
Author Organization [facility] Address [address] [place] [address] Assessment Encounter Date Assessment Date Assessment LastModified by Organization Details LastModified Time 08/31/2016 08/31/2016 1. Genital warts - Continue imiquimod topical 2. Ovary cyst - Pelvis sonogram in 6 weeks, follow up for resolution [email or web address] Not available 08/31/2016 12:31:04 Plan of Treatment Reminders Order Date Submit Date Provider Last Modified By Organization Details Last Modified Time Details Appointments None recorded. Lab urinalysis , dipstick 2018 019 [email or web address] In-Office Order, Internal Use Only DO Not Attach Compendium DO Not Attach Compendium, Do Not Delete/merge, [id number] 9 15:22:58 urinalysis , dipstick 2018 019 [email or web address] In-Office Order, Internal Use Only DO Not Attach Compendium DO Not Attach Compendium, Do Not Delete/merge, [id number] 9 12:59:46 bacterial vaginosis + vaginitis panel, vaginal 2018 019 [facility], [address], [place], [address], 9 07:15:26 drug screen, urine 2018 019 [facility], [address], [address], [place], [address], 9 11:15:44 HIV 1+2 AB + HIV 1 p24 Ag, qualitativ e immunoassa y, serum 2018 019 [facility], [address], [place], [address], 9 11:15:47 hemoglobin (Hb) electropho resis, blood 2018 019 [facility], [address], [place], [address], 9 11:15:45 obstetric screen, serum or blood 2018 019 [facility], [address], [place], [address], 9 11:15:43 urinalysis complete, reflex culture 2018 019 [facility], [address], [place], [address], 9 11:15:45 varicella zoster virus IgG Ab, QN, IA, serum 2018 019 [facility], [address], [place], [address], 9 11:15:47 cf (cystic fibrosis) profile 2018 019 [facility], [address], [place], [address], 9 11:15:46 HSV 2 IgG Ab, QN, IA, serum 2018 019 [facility], [address], [place], [address], 9 11:15:48 test, urine 2018 019 [email or web address] In-Office Order, Internal Use Only DO Not Attach Compendium DO Not Attach Compendium, Do Not Delete/merge, [id number] 9 12:05:57 CT + NG + TV, DNA, urine/swab 2017 018 [facility], [address] [place] [address], [facility] [address], [place], [address], 8 11:15:06 HBsAg (hepatitis B surface Ag), EIA, serum 2017 018 [facility], [address] [place] [address] 2, [place], [address], 8 11:14:32 hepatitis C Ab, signal-to- cutoff, serum or plasma 2017 018 [facility], [address] [place] [address], [place], [address], 8 11:14:31 HIV 1+2 AB + HIV 1 p24 Ag, qualitativ e immunoassa y, serum 2017 018 [facility], [address] [place] [address], [facility] [address], [place], [address], 8 11:14:31 RPR (rapid plasma reagin), serum 2017 018 [facility], [address] [place] [address], [facility] [address], [place], [address], 8 11:14:30 hsv-2 (herpes simplex virus type 2) igg Ab, serum 2017 018 [facility], [address] [place] [address], [facility] [address], [place], [address], 8 11:14:31 Referral None recorded. Procedures None recorded. Surgeries None recorded. Imaging US, obstetric, 1st trimester 2018 019 [facility], [address], [place], [address], 9 13:55:49 US, pelvis, transabdom inal + transvagin al 2016 017 [email or web address] [facility] ([facility]), [address], [place], [address], 7 10:21:39 Medication Orders promethazi ne 12.5 mg tablet 2018 019 [id number], [address], [place], [place], [id number], 9 12:20:13 podofilox 0.5 % topical solution 2017 018 [id number], [address], [place], [place], [id number], 9 11:06:53 Patient TargetsNo targets recorded. Patient Instructions Encounter Date Encounter Id Patient Instructions Last Modified By Organization Details Last Modified Time 08/23/2017 [id number] molluscum contagiosum: care instructions [email or web address] Not available 08/23/2017 17:29:50 Reason for Referral None Reported. Results Created Date Observation Date Name Description Value Unit Range Abnormal Flag Note LastModifiedBy Organization Detail LastModifiedTime 08/03/19 17 08/04/2016 hsv (1+2) igg, serum hsv 1 IgG, type spec 34.10 index 0.00-0 .90 above high normal NEGAT EPI <0.91 EQUIV OCAL 0.91 - 1.09 POSIT EPI >1.09 NOTE: NEGAT EPI INDIC ATES NO ANTIB ODIES DETEC ESTEFANI TO HSV-1 . EQUIV OCAL MAY SUGGE ST EARLY INFEC TION. IF CLINI GEORGES APPRO PRIAT E, RETES T AT LATER DATE. POSIT EPI INDIC ATES ANTIB ODIES DETEC ESTEFANI TO HSV-1 . Not Available [facility] ([facility]) [address] [facility], [place], [address], 08/04/2016 11:13:42 08/03/19 17 08/04/2016 hsv (1+2) igg, serum hsv 2 IgG, type spec <0.91 index 0.00-0 .90 NEGAT EPI <0.91 EQUIV OCAL 0.91 - 1.09 POSIT EPI >1.09 NOTE: NEGAT EPI INDIC ATES NO ANTIB ODIES DETEC ESTEFANI TO HSV-2 . EQUIV OCAL MAY SUGGE ST EARLY INFEC TION. IF CLINI GEORGES APPRO PRIAT E, RETES T AT LATER DATE. POSIT EPI INDIC ATES ANTIB ODIES DETEC ESTEFANI TO HSV-2 . Not Available [facility] ([facility]) [address] [facility], [place], [address], 08/04/2016 11:13:42 08/03/19 17 08/04/2016 RPR (rapi d plasm a reagi n), serum RPR NON REACTI VE non reacti ve Not Available [facility] ([facility]) [address] [facility], [place], [address], 08/04/2016 11:13:43 08/03/19 17 08/04/2016 HIV 1+2 AB + HIV 1 p24 Ag, quali tativ e immun oassa y, serum HIV screen 4TH generation wrfx NON REACTI VE non reacti ve Not Available [facility] ([facility]) [address] [facility], [place], [address], 08/04/2016 11:13:44 08/03/19 17 08/03/2016 hepat itis C Ab, signa l-to- cutof f, serum or plasm a comment: COMMEN T NON REACT EPI HCV ANTIB MIKE SCREE N IS CONSI STENT WITH NO HCV INFEC TION, UNLES S RECEN T INFEC TION IS SUSPE CTED OR OTHER EVIDE NCE EXIST S TO INDIC ATE HCV INFEC TION. Not Available [facility] ([facility]) [address] [facility], [place], [address], 08/04/2016 11:13:44 08/03/19 17 08/04/2016 hepat itis C Ab, signa l-to- cutof f, serum or plasm a HCV Ab 0.1 S/co_ ratio 0.0-0. 9 Not Available [facility] ([facility]) [address] [place], [address], 08/04/2016 11:13:44 08/03/19 17 08/04/2016 HBsAg (hepa titis B surfa ce Ag), EIA, serum HBsAg screen NEGATI VE negati ve Not Available [facility] ([facility]) [address] [place], [address], 08/04/2016 11:13:45 08/03/19 17 08/04/2016 pap, IG + CT/NG chlamydia, nuc. acid amp NEGATI VE negati ve Not Available [facility] ([facility]) [address] [place], [address], 08/05/2016 11:15:43 08/03/19 17 08/04/2016 pap, IG + CT/NG gonococcus, nuc. acid amp NEGATI VE negati ve Not Available [facility] ([facility]) [address] [place], [address], 08/05/2016 11:15:43 08/03/19 17 08/05/2016 pap, IG + CT/NG diagnosis: COMMEN T ROHAN LITTLEE FOR INTRA EPITH ELIAL LESIO N AND LAURA AQUINO . Not Available [facility] ([facility]) [address] [place], [address], 08/05/2016 11:15:43 08/03/19 17 08/05/2016 pap, IG + CT/NG specimen adequacy: COMMEN T SATIS FACTO RY FOR EVALU ATION . ENDOC ERVIC AL AND/O R SQUAM OUS METAP LASTI C CELLS (ENDO CERVI KENYATTA COMPO NENT) ARE PRESE NT. Not Available [facility] ([facility]) [address] [place], [address], 08/05/2016 11:15:43 08/03/19 17 08/05/2016 pap, IG + CT/NG clinician provided ICD10: COMMEN T Z01.4 11 Not Available [facility] ([facility]) [address] [place], [address], 08/05/2016 11:15:43 08/03/19 17 08/05/2016 pap, IG + CT/NG performed by: MAHESH LAKHANI (ASCP ) Not Available [facility] ([facility]) [address] [place], [address], 08/05/2016 11:15:43 08/03/19 17 08/05/2016 pap, IG + CT/NG . . Not Available [facility] ([facility]) [address] [place], [address], 08/05/2016 11:15:43 08/03/19 17 08/05/2016 pap, IG + CT/NG note: CHRISTINA Jordan THE PAP SMEAR IS A SCREE DARA TEST DESIG PATRICIA TO AID IN THE DETEC TION OF TOLU LIGNA NT AND MALIG NANT CONDI TIONS OF THE UTERI NE CERVI X. IT IS NOT A DIAGN OSTIC PROCE DURE AND SHOUL D NOT BE USED THE SOLE MEANS OF DETEC TING CERVI KENYATTA CANCE R. BOTH FALSE -POSI TIVE AND FALSE -NEGA TIVE REPOR TS DO OCCUR . Not Available [facility] ([facility]) [address] [place], [address], 08/05/2016 11:15:43 08/03/19 17 08/05/2016 pap, IG + CT/NG test methodology: CHRISTINA Jordan THIS LIQUI D BASED THINP REP(R ) PAP TEST WAS SCREE PATRICIA WITH THE USE OF AN IMAGE GUIDE Christian Marie. Not Available [facility] ([facility]) [address] [place], [address], 08/05/2016 11:15:43 08/03/19 17 08/05/2016 bacte rial vagin osis + vagin itis panel , vagin al trich vag by MARLENY NEGATI VE negati ve Not Available [facility] ([facility]) [address] [facility], [place], [address], 08/06/2016 16:20:53 08/03/19 17 08/06/2016 bacte rial vagin osis + vagin itis panel , vagin al atopobium vaginae HIGH - 2 score abnormal Not Available [facility] ([facility]) [address] [facility], [place], [address], 08/06/2016 16:20:53 08/03/19 17 08/06/2016 bacte rial vagin osis + vagin itis panel , vagin al bvab 2 HIGH - 2 score abnormal Not Available [facility] ([facility]) [address] [facility], [place], [address], 08/06/2016 16:20:53 08/03/19 17 08/06/2016 bacte rial vagin osis + vagin itis panel , vagin al megasphaera 1 HIGH - 2 score abnormal CALCU LATE TOTAL SCORE BY CHARLOTTE Penn THE 3 INDIV IDUAL BACTE RIAL VAGIN OSIS (BV) MARKE R SCORE S TOGET HER. TOTAL SCORE IS INTER PRETE D FOLLO WS: TOTAL SCORE 0-1: INDIC ATES THE ABSEN CE OF BV. TOTAL SCORE 2: INDET ERMIN ATE FOR BV. ADDIT IONAL CLINI KENYATTA DATA SHOUL D BE EVALU ATED TO ESTAB BRENDA A DIAGN OSIS. TOTAL SCORE 3-6: INDIC ATES THE PRESE NCE OF BV. THIS TEST WAS DEVEL OPED AND ITS PERFO RMANC E NELA CTERI STICS DETER MINED BY [facility]. IT HAS NOT BEEN CLEAR ED OR APPRO DAMIR BY THE FOOD AND DRUG ADMIN ISTRA TION. THE FDA HAS DETER MINED THAT SUCH CLEAR ANCE OR APPRO KEYONNA IS NOT NECES MARY KATE. Not Available [facility] ([facility]) [address] [facility], [place], [address], 08/06/2016 16:20:53 08/03/19 17 08/06/2016 bacte rial vagin osis + vagin itis panel , vagin al angie albicans, MARLENY NEGATI VE negati ve Not Available [facility] ([facility]) [address] [place], [address], 08/06/2016 16:20:53 08/03/19 17 08/06/2016 bacte rial vagin osis + vagin itis panel , vagin al angie glabrata, MARLENY NEGATI VE negati ve THIS TEST WAS DEVEL OPED AND ITS PERFO RMANC E NELA CTERI STICS DETER MINED BY [facility]. IT HAS NOT BEEN CLEAR ED OR APPRO DAMIR BY THE FOOD AND DRUG ADMIN ISTRA TION. THE FDA HAS DETER MINED THAT SUCH CLEAR ANCE OR APPRO KEYONNA IS NOT NECES MARY KATE. Not Available [facility] ([facility]) [address] [facility], [place], [address], 08/06/2016 16:20:53 08/23/19 18 08/24/2017 RPR (rapi d plasm a reagi n), serum RPR Non Reacti ve non reacti ve Not Available [facility] ([facility]) [address] [place], [address], 08/24/2017 11:14:30 08/23/19 18 08/24/2017 HIV 1+2 AB + HIV 1 p24 Ag, quali tativ e immun oassa y, serum HIV screen 4TH generation wrfx Non Reacti ve non reacti ve Not Available [facility] ([facility]) [address] [place], [address], 08/24/2017 11:14:30 08/23/19 18 08/23/2017 hepat itis C Ab, signa l-to- cutof f, serum or plasm a comment: Commen t Non react epi HCV antib mike scree n is consi stent with no HCV infec tion, unles s recen t infec tion is suspe cted or other evide nce exist s to indic ate HCV infec tion. Not Available [facility] ([facility]) [address] [facility] [place], [address], 08/24/2017 11:14:31 08/23/19 18 08/24/2017 hepat itis C Ab, signa l-to- cutof f, serum or plasm a HCV Ab <0.1 s/co_ ratio 0.0-0. 9 Not Available [facility] ([facility]) [address] [facility], [place], [address], 08/24/2017 11:14:31 08/23/19 18 08/24/2017 hsv-2 (herp es simpl ex virus type 2) igg Ab, serum hsv 2 IgG, type spec <0.91 index 0.00-0 .90 Negat epi <0.91 Equiv ocal 0.91 - 1.09 Posit epi >1.09 Note: Negat epi indic ates no antib odies detec estefani to HSV-2 . Equiv ocal may sugge st early infec tion. If clini georges appro priat e, retes t at later date. Posit epi indic ates antib odies detec estefani to HSV-2 . Not Available [facility] ([facility]) [address] [facility], [place], [address], 08/24/2017 11:14:31 08/23/19 18 08/24/2017 HBsAg (hepa titis B surfa ce Ag), EIA, serum HBsAg screen Negati ve negati ve Not Available [facility] ([facility]) [address] [facility], [place], [address], 08/24/2017 11:14:32 08/23/19 18 08/25/2017 CT + NG + TV, DNA, urine /swab chlamydia by MARLENY Negati ve negati ve Not Available [facility] ([facility]) [address] [facility], [place], [address], 08/25/2017 11:15:06 08/23/19 18 08/25/2017 CT + NG + TV, DNA, urine /swab gonococcus by MARLENY Negati ve negati ve Not Available [facility] ([facility]) [address] [facility], [place], [address], 08/25/2017 11:15:06 08/23/19 18 08/25/2017 CT + NG + TV, DNA, urine /swab trich vag by MARLENY Negati ve negati ve Not Available [facility] ([facility]) [address] [facility], [place], [address], 08/25/2017 11:15:06 08/03/19 19 08/04/2018 obste tric scree n, serum or blood HBsAg screen Negati ve negati ve Not Available [facility] ([facility]) [address] [facility], [place], [address], 08/10/2018 11:15:43 08/03/19 19 08/04/2018 obste tric scree n, serum or blood RPR Non Reacti ve non reacti ve Not Available [facility] ([facility]) [address] [facility], [place], [address], 08/10/2018 11:15:43 08/03/1908/04/2018 obste tric scree n, serum or blood rubella antibodies, IgG 12.20 index immune >0.99 Non-i mmune <0.90 Equiv ocal 0.90 - 0.99 Immun e >0.99 Not Available [facility] ([facility]) [address] [facility], [place], [address], 08/10/2018 11:15:43 08/03/1908/04/2018 obste tric scree n, serum or blood ABO grouping A Not Available [facility] ([facility]) [address] [facility], [place], [address], 08/10/2018 11:15:43 08/03/1908/04/2018 obste tric scree n, serum or blood Rh factor Positi ve Pleas e note: Prior recor ds for this patie nt's ABO / Rh type are not avail able for addit ional verif icati on. Not Available [facility] ([facility]) [address] [facility], [place], [address], 08/10/2018 11:15:43 08/03/1908/04/2018 obste tric scree n, serum or blood antibody screen Negati ve negati ve Not Available [facility] ([facility]) [address] [facility], [place], [address], 08/10/2018 11:15:43 08/03/1908/04/2018 obste tric scree n, serum or blood WBC 8.0 x10e3 /uL 3.4-10 .8 Not Available [facility] ([facility]) [address] [facility], [place], [address], 08/10/2018 11:15:43 08/03/1908/04/2018 obste tric scree n, serum or blood RBC 3.99 x10e6 /uL 3.77-5 .28 Not Available [facility] ([facility]) [address] [facility], [place], [address], 08/10/2018 11:15:43 08/03/1908/04/2018 obste tric scree n, serum or blood hemoglobin 12.6 g/dL 11.1-1 5.9 Not Available [facility] ([facility]) [address] [facility], [place], [address], 08/10/2018 11:15:43 08/03/1908/04/2018 obste tric scree n, serum or blood hematocrit 37.6 % 34.0-4 6.6 Not Available [facility] ([facility]) [address] [facility], [place], [address], 08/10/2018 11:15:43 08/03/1908/04/2018 obste tric scree n, serum or blood MCV 94 fL 79-97 Not Available [facility] ([facility]) [address] [place], [address], 08/10/2018 11:15:43 08/03/19 19 08/04/2018 obste tric scree n, serum or blood MCH 31.6 pg 26.6-3 3.0 Not Available [facility] ([facility]) [address] [place], [address], 08/10/2018 11:15:43 08/03/19 19 08/04/2018 obste tric scree n, serum or blood MCHC 33.5 g/dL 31.5-3 5.7 Not Available [facility] ([facility]) [address] [place], [address], 08/10/2018 11:15:43 08/03/19 19 08/04/2018 obste tric scree n, serum or blood RDW 13.5 % 12.3-1 5.4 Not Available [facility] ([facility]) [address] [place], [address], 08/10/2018 11:15:43 08/03/19 19 08/04/2018 obste tric scree n, serum or blood platelets 225 x10e3 /uL 150-37 9 Not Available [facility] ([facility]) [address] [place], [address], 08/10/2018 11:15:43 08/03/19 19 08/04/2018 obste tric scree n, serum or blood neutrophils 73 % not estab. Not Available [facility] ([facility]) [address] [place], [address], 08/10/2018 11:15:43 08/03/19 19 08/04/2018 obste tric scree n, serum or blood lymphs 21 % not estab. Not Available [facility] ([facility]) [address] [place], [address], 08/10/2018 11:15:43 08/03/19 19 08/04/2018 obste tric scree n, serum or blood monocytes 5 % not estab. Not Available [facility] ([facility]) [address] [place], [address], 08/10/2018 11:15:43 08/03/19 19 08/04/2018 obste tric scree n, serum or blood eos 1 % not estab. Not Available [facility] ([facility]) [address] [place], [address], 08/10/2018 11:15:43 08/03/1908/04/2018 obste tric scree n, serum or blood basos 0 % not estab. Not Available [facility] ([facility]) [address] [place], [address], 08/10/2018 11:15:43 08/03/19 19 08/04/2018 obste tric scree n, serum or blood immature cells FIRE DEPARTMENT BATTALION CHIEF Not Available [facility] ([facility]) [address] [place], [address], 08/10/2018 11:15:43 08/03/1908/04/2018 obste tric scree n, serum or blood neutrophils (absolute) 5.8 x10e3 /uL 1.4-7. 0 Not Available [facility] ([facility]) [address] [place], [address], 08/10/2018 11:15:43 08/03/1908/04/2018 obste tric scree n, serum or blood lymphs (absolute) 1.7 x10e3 /uL 0.7-3. 1 Not Available [facility] ([facility]) [address] [place], [address], 08/10/2018 11:15:43 08/03/1908/04/2018 obste tric scree n, serum or blood monocytes(ab solute) 0.4 x10e3 /uL 0.1-0. 9 Not Available [facility] ([facility]) [address] [place], [address], 08/10/2018 11:15:43 08/03/19 19 08/04/2018 obste tric scree n, serum or blood eos (absolute) 0.1 x10e3 /uL 0.0-0. 4 Not Available [facility] ([facility]) [address] [facility], [place], [address], 08/10/2018 11:15:43 08/03/1908/04/2018 obste tric scree n, serum or blood baso (absolute) 0.0 x10e3 /uL 0.0-0. 2 Not Available [facility] ([facility]) [address] [facility], [place], [address], 08/10/2018 11:15:43 08/03/19 19 08/04/2018 obste tric scree n, serum or blood immature granulocytes 0 % not estab. Not Available [facility] ([facility]) [address] [facility], [place], [address], 08/10/2018 11:15:43 08/03/1908/04/2018 obste tric scree n, serum or blood immature grans (abs) 0.0 x10e3 /uL 0.0-0. 1 Not Available [facility] ([facility]) [address] [facility], [place], [address], 08/10/2018 11:15:43 08/03/1908/04/2018 obste tric scree n, serum or blood NRBC FIRE DEPARTMENT BATTALION CHIEF Not Available [facility] ([facility]) [address] [facility], [place], [address], 08/10/2018 11:15:43 08/03/1908/04/2018 obste tric scree n, serum or blood hematology comments: FIRE DEPARTMENT BATTALION CHIEF Not Available [facility] ([facility]) [address] [facility], [place], [address], 08/10/2018 11:15:43 08/03/192019 drug scree n, urine amphetamines , urine Negati ve NG/mL cutoff =1000 Amphe tamin e test inclu mookie Amphe tamin e and Metha mphet amine . Not Available [facility] ([facility]) [address] [place], [address], 08/10/2018 11:15:44 08/03/19 19 08/04/2018 drug scree n, urine barbiturates Negati ve NG/mL cutoff =200 Not Available [facility] ([facility]) [address] [place], [address], 08/10/2018 11:15:44 08/03/1908/04/2018 drug scree n, urine benzodiazepi ilene Negati ve NG/mL cutoff =200 Not Available [facility] ([facility]) [address] [place], [address], 08/10/2018 11:15:44 08/03/19 19 08/04/2018 drug scree n, urine cannabinoid Negati ve NG/mL cutoff =50 Not Available [facility] ([facility]) [address] [place], [address], 08/10/2018 11:15:44 08/03/19 19 08/04/2018 drug scree n, urine cocaine (metab.) Negati ve NG/mL cutoff =300 Not Available [facility] ([facility]) [address] [place], [address], 08/10/2018 11:15:44 08/03/19 19 08/04/2018 drug scree n, urine methaqualone Negati ve NG/mL cutoff =300 Not Available [facility] ([facility]) [address] [place], [address], 08/10/2018 11:15:44 08/03/1908/04/2018 drug scree n, urine opiates Negati ve NG/mL cutoff =2000 Opiat e test inclu mookie Codei ne and Morph ine only. Not Available [facility] ([facility]) [address] [place], [address], 08/10/2018 11:15:44 08/03/19 19 08/04/2018 drug scree n, urine phencyclidin e Negati ve NG/mL cutoff =25 Not Available [facility] ([facility]) [address] [place], [address], 08/10/2018 11:15:44 08/03/19 19 08/04/2018 drug scree n, urine methadone screen, urine Negati ve NG/mL cutoff =300 Not Available [facility] ([facility]) [address] [place], [address], 08/10/2018 11:15:44 08/03/19 19 08/04/2018 drug scree n, urine propoxyphene , urine Negati ve NG/mL cutoff =300 Not Available [facility] ([facility]) [address] [place], [address], 08/10/2018 11:15:44 08/03/1908/04/2018 urina lysis compl ete, refle x cultu re specific gravity 1.024 1.005- 1.030 Not Available [facility] ([facility]) [address] [place], [address], 08/10/2018 11:15:45 08/03/1908/04/2018 urina lysis compl ete, refle x cultu re pH 6.5 5.0-7. 5 Not Available [facility] ([facility]) [address] [place], [address], 08/10/2018 11:15:45 08/03/1908/04/2018 urina lysis compl ete, refle x cultu re urine-color Yellow yellow Not Available [facility] ([facility]) [address] [place], [address], 08/10/2018 11:15:45 08/03/19 19 08/04/2018 urina lysis compl ete, refle x cultu re appearance Clear clear Not Available [facility] ([facility]) [address] [place], [address], 08/10/2018 11:15:45 08/03/1908/04/2018 urina lysis compl ete, refle x cultu re WBC esterase Negati ve negati ve Not Available [facility] ([facility]) [address] [place], [address], 08/10/2018 11:15:45 08/03/1908/04/2018 urina lysis compl ete, refle x cultu re protein Trace negati ve/tra ce Not Available [facility] ([facility]) [address] [place], [address], 08/10/2018 11:15:45 08/03/1908/04/2018 urina lysis compl ete, refle x cultu re glucose Negati ve negati ve Not Available [facility] ([facility]) [address] [place], [address], 08/10/2018 11:15:45 08/03/1908/04/2018 urina lysis compl ete, refle x cultu re ketones Negati ve negati ve Not Available [facility] ([facility]) [address] [place], [address], 08/10/2018 11:15:45 08/03/1908/04/2018 urina lysis compl ete, refle x cultu re occult blood Negati ve negati ve Not Available [facility] ([facility]) [address] [place], [address], 08/10/2018 11:15:45 08/03/1908/04/2018 urina lysis compl ete, refle x cultu re bilirubin Negati ve negati ve Not Available [facility] ([facility]) [address] [facility], [place], [address], 08/10/2018 11:15:45 08/03/1908/04/2018 urina lysis compl ete, refle x cultu re urobilinogen ,semi-qn 0.2 mg/dL 0.2-1. 0 Not Available [facility] ([facility]) [address] [facility], [place], [address], 08/10/2018 11:15:45 08/03/1908/04/2018 urina lysis compl ete, refle x cultu re nitrite, urine Negati ve negati ve Not Available [facility] ([facility]) [address] [facility], [place], [address], 08/10/2018 11:15:45 08/03/1908/04/2018 urina lysis compl ete, refle x cultu re microscopic examination Commen t Micro scopi c follo ws if indic ated. Not Available [facility] ([facility]) [address], [place], [address], 08/10/2018 11:15:45 08/03/1908/04/2018 urina lysis compl ete, refle x cultu re microscopic examination See below: Micro scopi c was indic ated and was perfo rmed. Not Available [facility] ([facility]) [address], [place], [address], 08/10/2018 11:15:45 08/03/1908/04/2018 urina lysis compl ete, refle x cultu re WBC 0-5 /hpf 0 - 5 Not Available [facility] ([facility]) [address], [place], [address], 08/10/2018 11:15:45 08/03/1908/04/2018 urina lysis compl ete, refle x cultu re RBC 0-2 /hpf 0 - 2 Not Available [facility] ([facility]) [address], [place], [address], 08/10/2018 11:15:45 08/03/1908/04/2018 urina lysis compl ete, refle x cultu re epithelial cells (non renal) 0-10 /hpf 0 - 10 Not Available [facility] ([facility]) [address], [place], [address], 08/10/2018 11:15:45 08/03/1908/04/2018 urina lysis compl ete, refle x cultu re epithelial cells (renal) FIRE DE[employer]MENT BATTAL[employer] CHIEF Not Available [facility] ([facility]) [address], [place], [address], 08/10/2018 11:15:45 08/03/1908/04/2018 urina lysis compl ete, refle x cultu re casts FIRE DEPARTMENT BATTALION CHIEF Not Available [facility] ([facility]) [address], [place], [address], 08/10/2018 11:15:45 08/03/1908/04/2018 urina lysis compl ete, refle x cultu re cast type FIRE DEPARTMENT BATTALION CHIEF Not Available [facility] ([facility]) [address], [place], [address], 08/10/2018 11:15:45 08/03/1908/04/2018 urina lysis compl ete, refle x cultu re crystals FIRE DEPARTMENT BATTALION CHIEF Not Available [facility] ([facility]) [address] [place], [address], 08/10/2018 11:15:45 08/03/1908/04/2018 urina lysis compl ete, refle x cultu re crystal type FIRE DEPARTMENT BATTALION CHIEF Not Available [facility] ([facility]) [address] [place], [address], 08/10/2018 11:15:45 08/03/1908/04/2018 urina lysis compl ete, refle x cultu re mucus threads Presen t not estab. Not Available [facility] ([facility]) [address], [place], [address], 08/10/2018 11:15:45 08/03/1908/04/2018 urina lysis compl ete, refle x cultu re bacteria Few none seen/f ew Not Available [facility] ([facility]) [address], [place], [address], 08/10/2018 11:15:45 08/03/1908/04/2018 urina lysis compl ete, refle x cultu re yeast FIRE DEPARTMENT BATTALION CHIEF Not Available [facility] ([facility]) [address], [place], [address], 08/10/2018 11:15:45 08/03/1908/04/2018 urina lysis compl ete, refle x cultu re trichomonas FIRE DEPARTMENT BATTALION CHIEF Not Available [facility] ([facility]) [address], [place], [address], 08/10/2018 11:15:45 08/03/1908/04/2018 urina lysis compl ete, refle x cultu re comment FIRE DEPARTMENT BATTALION CHIEF Not Available [facility] ([facility]) [address], [place], [address], 08/10/2018 11:15:45 08/03/1908/04/2018 urina lysis compl ete, refle x cultu re urinalysis reflex Commen t This speci men will not refle x to a Urine Cultu re. Not Available [facility] ([facility]) [address] [place], [address], 08/10/2018 11:15:45 08/03/1908/04/2018 hemog lobin (Hb) elect ropho resis , blood HGB solubility Negati ve negati ve Not Available [facility] ([facility]) [address], [place], [address], 08/10/2018 11:15:45 08/03/1908/04/2018 hemog lobin (Hb) elect ropho resis , blood HGB F 0.7 % 0.0-2. 0 Not Available [facility] ([facility]) [address] [place], [address], 08/10/2018 11:15:45 08/03/1908/04/2018 hemog lobin (Hb) elect ropho resis , blood HGB A 97.0 % 96.4-9 8.8 Not Available [facility] ([facility]) [address] [place], [address], 08/10/2018 11:15:45 08/03/1908/04/2018 hemog lobin (Hb) elect ropho resis , blood HGB S 0.0 % 0.0 Not Available [facility] ([facility]) [address] [place], [address], 08/10/2018 11:15:45 08/03/1908/04/2018 hemog lobin (Hb) elect ropho resis , blood HGB C 0.0 % 0.0 Not Available [facility] ([facility]) [address] [place], [address], 08/10/2018 11:15:45 08/03/1908/04/2018 hemog lobin (Hb) elect ropho resis , blood HGB A2 2.3 % 1.8-3. 2 Not Available [facility] ([facility]) [address] [place], [address], 08/10/2018 11:15:45 08/03/1908/04/2018 hemog lobin (Hb) elect ropho resis , blood HGB variant FIRE DEPARTMENT BATTALION CHIEF Not Available [facility] ([facility]) [address] [place], [address], 08/10/2018 11:15:45 08/03/19 19 08/04/2018 hemog lobin (Hb) elect ropho audra , blood interpretati on Commen t Va l adult hemog lobin prese nt. Not Available [facility] ([facility]) [address], [place], [address], 08/10/2018 11:15:45 08/03/19 19 08/03/2018 cf (cyst ic fibro sis) profi le comment: Commen t The assay provi mookie infor matio n inten ded to be used for almaz er scree dara in adult s of repro ducti ve age, as an aid in newbo rn scree dara, and as a confi rmato ry test for anoth er medic ally estab lishe d diagn osis in new rns and child betzaida. The test is not indic ated for use in diagn ostic testi ng, pre-i mplan tatio n scree dara, or for any stand -hank e diagn ostic purpo ses witho ut confi rmati on by anoth er medic ally estab lishe d diagn ostic produ ct or proce dure. Not Available [facility] ([facility]) [address], [place], [address], 08/10/2018 11:15:46 08/03/19 19 08/10/2018 cf (cyst ic fibro sis) profi le CF, screen Commen t: RESUL TS: Negat epi for 32 mutat ions vernell zed INTER PRETA TION: This indiv idual is negat epi for the mutat ions vernell zed. This negat epi resul t may need furth er inter preta tion depen ding on the clini kenyatta indic ation . This resul t reduc es but does not elimi lenore the risk to be a CF almaz er. COMME NTS: The detec tion rate varie s with [place] city and is liste d below . The prese nce of an undet ected mutat ion in the CF gene canno t be ruled out. In the absen ce of famil y histo ry, the remai dara risk that a perso n with a negat epi resul t could have at least one CF mutat ion is liste d in the table . If there is a famil y histo ry of CF, these risk figur es do not apply . As detai led infor sidra hart this indiv idual 's famil y histo ry would permi t a more accur ate asses sment of this indiv idual 's risk to be a almaz er of cysti c fibro sis, pleas e conta ct [facility] Servi danielle at for a breezy ed repor t. Mutat ion Detec tion Detec tion rates are based on mutat ion Rates among Ethni c frequ encie s in patie nts affec estefani with Group s cysti c fibro sis. Among indiv idual s with an atypi kenyatta or mild prese ntati on (e.g. conge nital absen ce of the vas defer ens, pancr eatit is) detec tion rates may vary from those provi ded here: Almaz er risk reduc tion when no famil y histo ry Detec tion [place] city Rate Ashke nazi 08/19 to 97% Jewis h Cauca isl 08/18 to 90% (non- Hispa kathya) Afric an-Am carlos n to 69% Hispa kathya to 168 73% to 55% This inter preta tion is based on the clini kenyatta and famil y relat ionsh ip infor sidra souza provi ded and the curre nt under stand ing of the [employer] ular alana ics of this condi tion. MUTAT IONS VERNELL ZED: G85E V520F W1282 X 2183A A to G R117H G542X N1303 K 2184d Dipesh R334W S549N 394de lTT 2789+ 5G to A R347H S549R 621+1 G to T 3120+ 1G to A R347P G551D 711+1 G to T 3659d elC A455E R553X 1078d elT 3849+ 10kbC to T Delta I507 R560T 1717- 1G to A 3876d Dipesh Delta F508 R1162 X 1898+ 1G to A 3905i nsT METHO DS/LI MITAT IONS: DNA is isola estefani from the sampl e and teste d for the 32 CF mutat ions on the [employer] or[employer] (Za nex). Regio ns of the CFTR gene are ampli fied enzym atica lly and subje cted to a solut ion-p hase multi plex allel e-spe cific prime r exten yannick with subse quent hybri dizat ion to a bead array and fluor escen ce detec tion. Polym orphi sms F508C , I506V and I507V are inclu ded in this panel to rule out false posit epi delta F508 homoz ygote s. Refle x testi ng of 5T is inclu ded in the panel for R117H inter preta tion. False posit epi or negat epi resul ts may occur for reaso ns that inclu de alana ic varia nts, blood trans fusio ns, bone marro w trans plant ation , trevor eous repre senta tion of famil y relat ionsh ips or conta minat ion of a sampl e with mater nal cells . REFER ENCES : 1. Updat es on Almaz er Scree dara for Cysti c Fibro sis. (2011 ) Am J Ob Gynec ol 117(4 ):102 8-103 1 2. Day n, et al. (2004 ) Alana Med 6:387 -91 3. Jazmyn waggoner, et al. (2002 ) Alana Med 4:379 -391 4. Preco ncept ion and prena rojas almaz er scree dara for cysti c fibro sis: (2001 )ACOG .[facility] publi catio n Resul ts Relea sed By: Annika Cleaning, Ph.D. , [facility] Repor t Relea sed By: Annika Cleaning, Ph.D. , [facility] Not Available [facility] ([facility]) [address], [place], [address], 08/10/2018 11:15:46 01/1008/10/2018 cf (cyst ic fibro sis) swathi hamm pdf . Not Available [facility] ([facility]) [address], [place], [address], 08/10/2018 11:15:46 08/03/1908/04/2018 HIV 1+2 AB + HIV 1 p24 Ag, quali tativ e immun oassa y, serum HIV screen 4TH generation wrfx Non Reacti ve non reacti ve Not Available [facility] ([facility]) [address], [place], [address], 08/10/2018 11:15:47 08/03/1908/04/2018 varic rohan zoste r virus IgG Ab, QN, IA, serum varicella zoster IgG 2538 index immune >165 Negat epi <135 Equiv ocal 135 - 165 Posit epi >165 A posit epi resul t gener ally indic ates expos ure to the patho gen or admin istra tion of speci fic immun oglob ulins , but it is not indic ation of activ e infec tion or stage of disea se. Not Available [facility] ([facility]) [address], [place], [address], 08/10/2018 11:15:47 08/03/1908/04/2018 HSV 2 IgG Ab, QN, IA, serum hsv 2 IgG, type spec <0.91 index 0.00-0 .90 Negat epi <0.91 Equiv ocal 0.91 - 1.09 Posit epi >1.09 Note: Negat epi indic ates no antib odies detec estefani to HSV-2 . Equiv ocal may sugge st early infec tion. If clini georges appro priat e, retes t at later date. Posit epi indic ates antib odies detec estefani to HSV-2 . Not Available [facility] ([facility]) [address], [place], [address], 08/10/2018 11:15:48 08/03/1908/03/2018 pregn cassie test, urine HCG positi ve Not Available In-Office Order Internal Use Only DO Not Attach Compendium DO Not Attach Compendium, Do Not Delete/merge, [id number] 08/03/2018 11:19:37 08/15/1908/17/2018 bacte rial vagin osis + vagin itis panel , vagin al trich vag by MARLENY Negati ve negati ve Not Available [facility] ([facility]) [address] [place], [address], 08/18/2018 07:15:25 08/15/1908/17/2018 bacte rial vagin osis + vagin itis panel , vagin al chlamydia trachomatis, MARLENY Negati ve negati ve Not Available [facility] ([facility]) [address] [place], [address], 08/18/2018 07:15:25 08/15/1908/17/2018 bacte rial vagin osis + vagin itis panel , vagin al neisseria gonorrhoeae, MARLENY Negati ve negati ve Not Available [facility] ([facility]) [address] [place], [address], 08/18/2018 07:15:25 08/15/1908/18/2018 bacte rial vagin osis + vagin itis panel , vagin al atopobium vaginae High - 2 score abnormal Not Available [facility] ([facility]) [address] [place], [address], 08/18/2018 07:15:25 08/15/1908/18/2018 bacte rial vagin osis + vagin itis panel , vagin al bvab 2 High - 2 score abnormal Not Available [facility] ([facility]) [address] [place], [address], 08/18/2018 07:15:25 08/15/1908/18/2018 bacte rial vagin osis + vagin itis panel , vagin al megasphaera 1 Low - 0 score Calcu late total score by charlotte penn the 3 indiv idual bacte rial vagin osis (BV) marke r score s toget her. Total score is inter prete d as follo ws: Total score 0-1: Indic ates the absen ce of BV. Total score 2: Indet ermin ate for BV. Addit ional clini kenyatta data shoul d be evalu ated to estab brenda a diagn osis. Total score 3-6: Indic ates the prese nce of BV. This test was devel oped and its perfo rmanc e nela cteri stics deter mined by [facility]. It has not been clear ed or appro damir by the Food and Drug Admin istra tion. The FDA has deter mined that such clear ance or appro keyonna is not neces mary kate. Not Available [facility] ([facility]) [address] [place], [address], 08/18/2018 07:15:25 08/15/1908/18/2018 bacte rial vagin osis + vagin itis panel , vagin al angie albicans, MARLENY Negati ve negati ve Not Available [facility] ([facility]) [address] [place], [address], 08/18/2018 07:15:25 08/15/1908/18/2018 bacte rial vagin osis + vagin itis panel , vagin al angie glabrata, MARLENY Negati ve negati ve This test was devel oped and its perfo rmanc e nela cteri stics deter mined by [facility]. It has not been clear ed or appro damir by the Food and Drug Admin istra tion. The FDA has deter mined that such clear ance or appro keyonna is not neces mary kate. Not Available [facility] ([facility]) [address] [place], [address], 08/18/2018 07:15:25 08/15/1908/15/2018 urina lysis , dipst ick Leukocytes Small Not Available In-Offi ce Order Internal Use Only DO Not Attach Compendium DO Not Attach Compendium, Do Not Delete/merge, [id number] 08/15/2018 12:07:37 08/15/19 19 08/15/2018 urina lysis , dipst ick Nitrite negati ve Not Available In-Office Order Internal Use Only DO Not Attach Compendium DO Not Attach Compendium, Do Not Delete/merge, [id number] 08/15/2018 12:07:37 08/15/19 19 08/15/2018 urina lysis , dipst ick Urobilinogen .2 Not Available In-Of fice Order Internal Use Only DO Not Attach Compendium DO Not Attach Compendium, Do Not Delete/merge, [id number] 08/15/2018 12:07:37 08/15/19 19 08/15/2018 urina lysis , dipst ick Protein Negati ve Not Available In-Office Order Internal Use Only DO Not Attach Compendium DO Not Attach Compendium, Do Not Delete/merge, [id number] 08/15/2018 12:07:37 08/15/19 19 08/15/2018 urina lysis , dipst ick pH 6.0 Not Available In-Office Order Internal Use Only DO Not Attach Compendium DO Not Attach Compendium, Do Not Delete/merge, [id number] 08/15/2018 12:07:37 08/15/19 19 08/15/2018 urina lysis , dipst ick Blood Negati ve Not Available In-Office Order Internal Use Only DO Not Attach Compendium DO Not Attach Compendium, Do Not Delete/merge, [id number] 08/15/2018 12:07:37 08/15/19 19 08/15/2018 urina lysis , dipst ick Specific Ferris 1.015 Not Available In-Off ice Order Internal Use Only DO Not Attach Compendium DO Not Attach Compendium, Do Not Delete/merge, [id number] 08/15/2018 12:07:37 08/15/19 19 08/15/2018 urina lysis , dipst ick Ketone Negati ve Not Available In-Office Order Internal Use Only DO Not Attach Compendium DO Not Attach Compendium, Do Not Delete/merge, [id number] 08/15/2018 12:07:37 08/15/19 19 08/15/2018 urina lysis , dipst ick Bilirubin Negati ve Not Available In-Office Order Internal Use Only DO Not Attach Compendium DO Not Attach Compendium, Do Not Delete/merge, [id number] 08/15/2018 12:07:37 08/15/19 19 08/15/2018 urina lysis , dipst ick Glucose Negati ve Not Available In-Office Order Internal Use Only DO Not Attach Compendium DO Not Attach Compendium, Do Not Delete/merge, [id number] 08/15/2018 12:07:37 09/15/19 19 09/15/2018 urina lysis , dipst ick Leukocytes Negati ve Not Available In-Office Order Internal Use Only DO Not Attach Compendium DO Not Attach Compendium, Do Not Delete/merge, [id number] 09/15/2018 14:44:07 09/15/19 19 09/15/2018 urina lysis , dipst ick Nitrite negati ve Not Available In-Office Order Internal Use Only DO Not Attach Compendium DO Not Attach Compendium, Do Not Delete/merge, [id number] 09/15/2018 14:44:07 09/15/19 19 09/15/2018 urina lysis , dipst ick Urobilinogen .2 Not Available In-Of fice Order Internal Use Only DO Not Attach Compendium DO Not Attach Compendium, Do Not Delete/merge, [id number] 09/15/2018 14:44:07 09/15/19 19 09/15/2018 urina lysis , dipst ick Protein Trace Not Available In-Office Order Internal Use Only DO Not Attach Compendium DO Not Attach Compendium, Do Not Delete/merge, [id number] 09/15/2018 14:44:07 09/15/19 19 09/15/2018 urina lysis , dipst ick pH 7.0 Not Available In-Office Order Internal Use Only DO Not Attach Compendium DO Not Attach Compendium, Do Not Delete/merge, [id number] 09/15/2018 14:44:07 09/15/19 19 09/15/2018 urina lysis , dipst ick Blood Negati ve Not Available In-Office Order Internal Use Only DO Not Attach Compendium DO Not Attach Compendium, Do Not Delete/merge, [id number] 09/15/2018 14:44:07 09/15/19 19 09/15/2018 urina lysis , dipst ick Ketone Negati ve Not Available In-Office Order Internal Use Only DO Not Attach Compendium DO Not Attach Compendium, Do Not Delete/merge, [id number] 09/15/2018 14:44:07 09/15/19 19 09/15/2018 urina lysis , dipst ick Bilirubin Negati ve Not Available In-Office Order Internal Use Only DO Not Attach Compendium DO Not Attach Compendium, Do Not Delete/merge, [id number] 09/15/2018 14:44:07 09/15/19 19 09/15/2018 urina lysis , dipst ick Glucose Negati ve Not Available In-Office Order Internal Use Only DO Not Attach Compendium DO Not Attach Compendium, Do Not Delete/merge, [id number] 09/15/2018 14:44:07 09/15/19 19 09/15/2018 urina lysis , dipst ick Specific Ferris 1.020 Not Available In-Off ice Order Internal Use Only DO Not Attach Compendium DO Not Attach Compendium, Do Not Delete/merge, [id number] 09/15/2018 14:44:07 08/20/19 17 08/13/2016 US, pelvi s, trans abdom inal + trans vagin al No observ ation record ed. [email or web address] [place] [address] (Imaging) [address] [place], [address], 08/31/2016 12:32:02 08/16/19 19 08/15/2018 US, obste tric, 1st trime ster No observ ation record ed. [facility] [address], [place], [address], 08/16/2018 13:55:49 Result Notes None recorded. Problems Name Problem SNOMED Code Status Onset Date Resolution Date Notes Provider Name and Address Organization Details Recorded Time 69631601 Completed 019 12/12/2018 Diane Yates MA [facility], [place] - SI 9 11:32:11 Problem Notes None recorded. Procedures Surgical History Date Name Laterality Status Provider Name and Address Organization Details Recorded Time 07/25/2003 Other completed Margot Valencia MA [place] - [place] 08/23/2017 15:07:30 Imaging Results None recorded. Procedure Notes None recorded. Medical Equipment None Reported. Allergies Allergen ID Allergen Name Allergen Category Reaction Reaction Severity Criticality Documentation Date Start Date Code Code System Note Provider Name and Address Organization Details Recorded Time 20000 latex environme nt,medica tion other Not available Not available 08/03/2016 44129 91 RxNorm Kristy Paul MA null, [place] - [place] 7 11:18:53 Medications Name Sig Start Date Stop Date Status Note LastModified by Organization Details LastModified Time Prescriptio n - Prior Authorizati on Request 08/03 completed Not Available Not Available Not Available penicillin V potassium 250 mg tablet 08/23 completed Not Available Not Available Not Available promethazin e 12.5 mg tablet Take 1 tablet 4 times a day by oral route as needed. 2018 active Not Available Not Available Not Avai lable metronidazo le 0.75 % (37.5 mg/5 gram) vaginal gel Insert 1 applicato rful every day by vaginal route for 5 days. 2018 active Not Available Not Available Not Avai lable sulfamethox azole 800 mg-trimetho prim 160 mg tablet 08/23 completed Not Available Not Available Not Available imiquimod 5 % topical cream packet APPLY EXTERNALL Y TO THE AFFECTED AREA 3 TIMES A WEEK 08/03 completed Not Available Not Available Not Available Flagyl 500 mg tablet Take 1 tablet every 12 hours by oral route for 7 days. 08/23 completed Not Available Not Available Not Available phenazopyri dine 100 mg tablet 08/23 completed Not Available Not Available Not Available hydrocodone 7.5 mg-acetamin ophen 325 mg tablet 08/23 completed Not Available Not Available Not Available podofilox 0.5 % topical solution APPLY BY TOPICAL ROUTE 2 TIMES PER DAY FOR 3 DAYS THEN STOP FOR 4 DAYS. (REPEAT 7DAY CYCLE UNTIL NO VISIBLE WART TISSUE/MA X OF FOUR CYCLES) 08/03 completed Not Available Not Available Not Available Alyacen 1/35 (28) 1 mg-35 mcg tablet Take 1 tablet every day by oral route. 08/23 completed Not Available Not Available Not Available Vitals Date Recorded Body weight Provider Name an d Address Organization Details Last Updated DateTime 08/03/2018 [id number] Frank Balatzar Attn: Accounting,[address] [place], [address], [facility] 08/03/2018 11:31:39 Date Recorded Body height Body mass index (BMI) Systolic And Diastolic Provider Name and Address Organization Details Last Updated DateTime 08/03/2018 154.94 cm 28.9 kg/m2 122/78 mm[Hg] Diane Yates MA [facility] 08/03/2018 11:16:08 Date Recorded Body weight Provider Name an d Address Organization Details Last Updated DateTime 08/15/[phone] Frank Baltazar Attn: Accounting,[address] [place], [address], [facility] 08/15/2018 12:58:59 Date Recorded Body height Body mass index (BMI) Systolic And Diastolic Provider Name and Address Organization Details Last Updated DateTime 08/15/2018 154.94 cm 30 kg/m2 126/76 mm[Hg] Diane Yates MA [facility] 08/15/2018 12:07:32 Date Recorded Body height Body mass index (BMI) Body weight Systolic And Diastolic Provider Name and Address Organization Details Last Updated DateTime 08/23/2017 154.94 cm 27.6 kg/m2 74180.77 g 122/76 mm[Hg] Margot Valencia MA [facility] 08/23/2017 15:02:53 Date Recorded Body weight Systolic And Diastolic Provider Name and Address Organization Details Last Updated DateTime 08/31/2016 39757.1 g 118/78 mm[Hg] Kristy Paul MA [facility] 08/31/2016 11:32:03 Date Recorded Body weight Provider Name an d Address Organization Details Last Updated DateTime 09/15/[phone] Frank Baltazar Attn: Accounting,[address] [place], [address], [facility] 09/15/2018 15:17:02 Date Recorded Body height Body mass index (BMI) Systolic And Diastolic Provider Name and Address Organization Details Last Updated DateTime 09/15/2018 154.94 cm 29.3 kg/m2 118/66 mm[Hg] Diane Yates MA [facility] 09/15/2018 14:43:54 Social History Question Answer Notes LastModified by Organizat ion Details LastModified Time Tobacco Smoking Status Current Every Day Smoker Kristy Paul MA null, [facility] 08/03/2016 11:20:34 What Was The Date Of Your Most Recent Tobacco Screening? 09/15/2018 Information not available 02/15/2019 How Much Tobacco Do You Smoke? 0.5 PPD 8 A Day [email or web address] Information not available 08/23/2017 How Many Years Have You Smoked Tobacco? 7 [email or web address] Information not available 08/03/2016 Sex: Unknown Functional Status None recorded. Mental Status None recorded. Family History Relationship Description Onset Age of this Age Resolved Age Notes LastModified by Organization Details LastModified Time Maternal Grandmother Diabetes mellitus [email or web address] Not available 2017 15:06:02 Maternal Grandmother Pulmonary emphysema [email or web address] Not available 2017 15:06:40 Maternal Grandmother Arthritis [email or web address] Not available 15:06:51 Medical History Condition Response Headaches/Migraines N Anxiety Disorder Y Kidney or Bladder Problems Y Anemia N Gynecological History Statement/Question Response Abnormal Pap N Flow Heavy Sexually Active? Y Menses Monthly Y STIs/STDs N HPV Vaccine N Date of Last Pap Smear Sexual Problems? Y Duration of Flow (days) 7 Age at Menarche 12 LMP Definite Obstetrics History GPAL:G 1 P 0 0 0 0 Past Encounters Encounter ID Performer Location Encounter Start Date Encounter Closed Date Diagnosis/Indication Diagnosis SNOMED-CT Code Diagnosis ICD10 Code Diagnosis IMO Codes Diagnosis Note [id number] MD Adriane Eduardo [facility] ([facility]) 2 [facility] [address] [place] [address] 08/03/2016 10:58:07 08/03/2016 13:57:00 Gynecologic examination 64171332 Z01.411 Complainin g of pelvic pain 763460098 R10.2 Condyloma acuminata of vulva 432734708 A63.0 High risk sexual behavior 177071080 Z72.51 [id number] MD Adriane Eduardo ([facility] 122) [address] [facility] [place] [address] 08/31/2016 11:26:32 09/01/2016 10:21:39 Cyst of ovary 66694987 N83.299 follow up pelvic sonogram in 6 for resolution of ovarian cyst Genital warts 075765356 A63.0 Continue imiquimod topical until total resolution [id number] MD Adriane Eduardo ([facility] 122) [address] [facility] [place] [address] 08/23/2017 14:55:48 08/23/2017 19:19:59 Gynecologic examination [id number] Z01.411 CBE and pelvic exam performed Venereal d isease screening 803588700 Z11.3 Condyloma acuminata of vulva 284343635 A63.0 Anal warts 971655470 A63 .0 Molluscum contagiosum infection 92868590 B08.1 [id number] MD Adriane Eduardo 14 OB [address] [facility] [place] [place] [address] 08/03/2018 10:57:33 08/03/2018 12:49:47 Amenorrhea 51395299 N91.2 [id number] MD Adriane Eduardo 14 OB [address] [facility] [place] [address] 08/15/2018 11:56:00 08/15/2018 13:18:03 Routine care 674629166 Z34.91 Nausea and vomiting 1693 2000 R11.2 [id number] MD Adri[place] Eduardo 14 OB [address] [facility] [place] [address] 09/15/2018 14:11:34 09/18/2018 09:12:39 Routine care 719141518 Z34.91 Health Concerns Section Related Observation LastModified by Organization Detai ls LastModified Time None Recorded Concern Status LastModified by Organization Details LastModified Time None Recorded Advance Directives Directive None Recorded Payers Insurance Date Sequence Insurance Name Policy Number Policy Levin Covered Member ID Levin Member ID Guarantor Name 09/12/2018 SLIDING FEE SCHEDULE - DISCOUNT Marybel Hand 10/09/2018 1 [facility] - DOS PRIOR TO 2021 (MEDICAID REPLACEMENT - HMO) Marybel Hand [id number] Marybel Hand 08/03/2018 SLIDING FEE SCHEDULE - DISCOUNT Marybel Hand 08/16/2016 1 [place] Marybel Hand [id number] Marybel Hand 10/09/2018 1 [place] Marybel Hand [id number] Marybel Hand 08/10/2018 2 *SELF PAY* Ti cinthya Hand 07/31/2018 1 [facility] (MEDICAID HMO) Marybel Hand [id number] Marybel Hand Notes Date Note Type Note Provider Name and Address Organization Details Recorded Time 08/31/2016 text/html ROS as noted in the HPI Patient presents today to discuss test results and follow up on genital warts. She states she has been using the medication and the outbreak has improved. She was initially rubing the medication all over her thigh which caused blisters to develop. She stopped using the medication and allowed herself to heal. She has resumed the medication and now only applies it to the specific outbreak area, she denies and current issues. Cristian Smith MD Attn: Accounting[address] [place], [address], [facility] 08/31/2016 12:31:23 08/23/2017 text/html Annual GYNReport ed by PatientHistoryFor history, patient reportsno gynecologic complaints.Genitourina ry symptomsFor vulva, patient reportspainless genital lesion. For menstrual cycle, patient reportsnormal menses. For urinary symptoms, patient reportsno hematuriaandno incontinence. For vagina, patient reportsnormal vaginal discharge.Breast symptomsFor breast, patient reportsno breast pain,no breast lump, andno nipple discharge.Endocrine symptomsFor sexual complaints, patient reportsno sexual complaints,no pain during intercourse, andnormal libido. For menopausal symptoms, patient reportsno menopausal symptomsandnormal vaginal lubrication.Psychologi kenyatta symptomsFor psychological symptoms, patient reportsno depression,no anxiety, andno pmdd.ROS as noted in the HPI Cristian Smith MD Attn: Accounting[address] [place], [address], [facility] 08/23/2017 17:31:14 08/03/2018 text/html See flowsheet. Cristian Smith MD Attn: Accounting[address] [facility], [place], [address], [facility] 08/03/2018 11:32:02 08/15/2018 text/html See flowsheet. Cristian Smith MD Attn: Accounting[address] [facility], [place], [address], [facility] 08/15/2018 12:59:34 09/15/2018 text/html See flowsheet. Cristian Smith MD Attn: Accounting[address] [facility], [place], [address], [facility] 09/15/2018 15:17:37 OBGyn Episode Ob Episode Information Episode Created Date Number of Fetuses Patient Bloodtype Patient rh Status Prepregnancy Weight lbs Domestic Partner Domestic Partner Phone Father Name Print Line Inspector Status 08/03/19 19 1 A Positive CLOSED Fetus Data First Name Last Name Admitted to NICU Weight (g) Sex Living Outcome Pediatric Complications Fetus ID Race Codes Race Delivery Type [id number] Clayton Calculation Initial Clayton Date Initial Exam Date Initial Exam Provider Initial Ultrasound Date Last Menstrual Period Date Ultra Sound Weeks Gestation 03/15/2019 08/03/2018 [email or web address] 08/15/2018 06/08/2018 9 Eighteen To Twenty Week Clayton Update Ultra Sound Date Fundal Height At Umbil Quickening Date Ultra Sound Latest Weeks Gestation Final Clayton Confirmed By Final Clayton Confirmed Date Final Clayton Date [email or web address] 03/15/20 19 0 Pre- Flowsheet Flowsheet Date 08/03/2018 Vee Score Blood Edema Fundus Height Fundus Units Glucose Ketones Leukocytes Nitrite Labor Signs Protein Cervic Dilation Cervic Effacement Cervic Station none Type Weight in lbs Pre/Post Dialysis Refused With clothes 153.535634287324 BP Diastolic BP Location Tested BP Systolic BP Type 78 122 sitting Fetus Heart Rate Present Fetus Movement Comments Patient presents for initial visit. Nutritional counseling performed. Will obtain labs and schedule dating sonogram. RTC in 2 weeks, plan to perform initial OB exam. Flowsheet Date 08/15/2018 Vee Score Blood Edema Fundus Height Fundus Units Glucose Ketones Leukocytes Nitrite Labor Signs Protein Cervic Dilation Cervic Effacement Cervic Station neg none none negative none neg Type Weight in lbs Pre/Post Dialysis Refused With clothes 159.209235364518 BP Diastolic BP Location Tested BP Systolic BP Type 76 126 sitting Fetus Heart Rate Present Fetus Movement Comments CBE and pelvic exam [facility]ell [facility]nett Nutritional counseling performed. Discussed lab results. RTC in 4 weeks. Flowsheet Date 09/15/2018 Vee Score Blood Edema Fundus Height Fundus Units Glucose Ketones Leukocytes Nitrite Labor Signs Protein Cervic Dilation Cervic Effacement Cervic Station neg none none negative none trace Type Weight in lbs Pre/Post Dialysis Refused With clothes 155.74405120002 BP Diastolic BP Location Tested BP Systolic BP Type 66 118 sitting Fetus Heart Rate Present A 150's Present Fetus Movement Comments Patient complains of pain in her lower back and tail bone. She states the pain worsens when she is constipated. Informed patient that she should not lift boxes that are greater than 20 pounds. She does no desire medication for constipation. RTC in 4 weeks. Menstrual History Last Menstrual Date Menses Monthly On Bcp Conception Prior Menses Frequency Hcg Plus Date Menarche Onset Age 1106/08/2018 Genetic Screening And Infection History Question Response Note Patient's Age Will Be 35 Yea rs Or Older At Estimated Date of Delivery false Thalassemia (Belarusian, Swedish, Mediterranean, Or Background): MCV < 80 false Neural Tube Defect (Meningom yelocele, Spina Bifida, Or Anencephaly) false Congenital Heart Defect false Down Syndrome false Nimesh-Sachs (eg, Restorationist, Cajun, Hungarian-[place]) f alse Frantz Disease false Sickle Cell Disease Or Trait () false Hemophilia Or Other Blood Disorders false Muscular Dystrophy false Cystic Fibrosis false Rooks's Chorea false Mental Retardation/Autism false Other Inherited Genetic Or Chromosomal Disorder false Maternal Metabolic Disorder (eg, Type 1 Diabetes , PKU) false Patient Or Baby's Father Had A Child With Defects Not Listed Above false Recurrent Loss, Or A Stillbirth false Medications (including Suppl ements, Vitamins, Herbs, OTC Drugs), Illicit/Recreational Drugs, Alcohol true PNV's Any Other Genetic History false Live With Someone With TB Or Exposed To TB false Patient Or Partner Has History Of Genital Herpes false Rash Or Viral Illness Since Last Menstrual Perio d false History Of STD, Gonorrhea, Chlamydia, HPV, Syphi lis true HPV, genital warts Other Infection History false History of HIV false History of Hepatitis false Prior GBS-infected child false Delivery Information Delivery Date Delivery Type Labor Anesthesia Weeks Gestation Incision Type Labor Labor Length Hrs Delivered By Post Complications Tubal Sterilization Discharge Date Comments Discharge Information Feeding Method Contraceptive Method Maternal HG B and HCT Levels
== END 2025-06-05 16:38 | disposition home or self-care (01) ==
PROVIDERS: PCP Nurse Practitioner Family; Visit Provider Nurse Practitioner Family
DX: R05.9 Cough, unspecified (principal)
CPT/HCPCS: 71046